=== PATIENT | female | born 1990 | race Caucasian/White ===

== ENCOUNTER 2022-12-04 12:24 | Outpatient (CLI) | payer BC, OTHER, SELFPAY ==
--- NOTE | ~2022-12-04 | MMUS_ITS ---
EXAMINATION: MM diagnostic tracey BI w dnoal, US breast BI limited HISTORY: Bilateral breast pain TECHNIQUE: Craniocaudal, mediolateral, and mediolateral oblique 3-D tomosynthesis images of the breas ts were performed and synthetic 2-D images were generated. CAD analysis was submitted and interpreted . High resolution limited bilateral breast ultrasound was performed. COMPARISON: None, baseline BREAST PARENCHYMAL COMPOSITION: The breasts are heterogeneously dense, which may obscure small masses . FINDINGS: MAMMOGRAPHIC FINDINGS: No suspicious mass, calcification, or architectural distortion are identified in either breast to sug gest malignancy. No mammographic correlate is identified for the patient's reported breast pain. ULTRASOUND: There is no evidence of focal abnormal solid or cystic mass in the vicinity of the patient's reported breast pain. IMPRESSION: 1. No specific mammographic or sonographic correlate is identified for the patient's reported breast pain. Further evaluation at this time should be based on clinical assessment. Continued follow-up phy sical examination is recommended. 2. Recommend routine screening mammography beginning at age 40. BI-RADS Category 1: Negative Reviewed, dictated and finalized at location A. IMPRESSION: 1. No specific mammographic or sonographic correlate is identified for the veronica ent's reported breast pain. Further evaluation at this time should be based on clinical assessment. Continued follow-up physical examination is recommended. 2. Recommend routine screening mammography beginning at age 40. BI-RADS Category 1: Negative
== END 2022-12-04 12:25 | disposition home or self-care (01) ==
PROVIDERS: PCP Family Medicine; Visit Provider Obstetrics & Gynecology Gynecology
DX: N64.4 Mastodynia (principal)
CPT/HCPCS: 76642; 77062; 77066; G0279

== ENCOUNTER 2024-09-25 12:28 | Outpatient (CLI) | payer OTHER, MEDICAID, SELFPAY | END 2024-09-25 12:29 | disposition home or self-care (01) | PROVIDERS: PCP Family Medicine | DX: G43.709 Chronic migraine without aura, not intractable, without status migrainosus (principal); R90.82 White matter disease, unspecified | CPT/HCPCS: 70551 ==

== ENCOUNTER 2024-10-13 09:52 | Outpatient (CLI) | payer OTHER, MEDICAID, SELFPAY ==
--- NOTE | ~2024-10-13 | XR_ITS ---
Cervical Spine: AP, lateral, open-mouth views Clinical History: Pain Findings: There is mild reversal normal cervical lordosis. No fracture identified. There is minimal g rade 1 anterolisthesis of C2 over C3. The intervertebral disc spaces are well maintained. Pre-vertebr al soft tissues are unremarkable. Impression: Minimal grade 1 anterolisthesis of C2 over C3, with mild reversal of the normal cervical lordosis. Reviewed, dictated and finalized at location . Impression: Minimal grade 1 anterolisthesis of C2 over C3, with mild reversal of the normal cervical lordosis.
--- OUTSIDE RECORDS SUMMARY | 2024-10-13 11:07 | XMS_ITS | CONTINUITY OF CARE DOCUMENT ---
Author Name jordan ortega Address Unknown Organization [facility] Address [id number] [place] [address] [address] [place] [address] Phone [phone] Care Team Providers Care Building Pressure Washer Name Role Phone ELIAN GALE MD Unavailable [phone] ELIAN GALE MD Unavailable [phone] INSURANCE PROVIDERS Payer name Policy type / Coverage type [place] red democrat [employer] insurance [employer] [facility] Other [id number]
--- OUTSIDE RECORDS SUMMARY | 2024-10-13 11:07 | XMS_ITS | Data Portability ---
Author Organization [place] [facility] [employer], Main Office Address [address] [place] [address] Assessment No assessment recorded. Plan of Treatment Reminders Order Date Submit Date Provider Last Modified By Organization Details Last Modified Time Details Appointments Follow Up 30 2024 09:30A Alberto Lacey NP Not available Not available Not available Lab rf (rheum atoid factor ), serum 2024 025 LATOYA Newberry, [address], [place], [address], 10/11/2024 17:09:29 ESR (eryth rocyte sedime ntatio n rate), blood 2024 025 LATOYA Newberry, [address], [place], [address], 10/11/2024 17:09:28 FRANK (antin uclear antibo dies) screen , serum 2024 025 LATOYA Newberry, [address], [place], [address], 10/11/2024 17:09:26 TSH + free T4, serum 2024 025 LATOYA Newberry, [address], [place], [address], 10/11/2024 17:09:27 thyroi d peroxi dase (tpo) Ab, serum 2024 025 LATOYA Newberry, [address], [place], [address], 10/11/2024 17:09:26 T3, free, serum or plasma 2024 [facility], [address], [place], [address], 10/11/2024 17:09:27 magnes ium, serum or plasma 2024 [facility], [address], [place], [address], 10/11/2024 17:09:43 cobala min and folate panel, serum 2024 [facility], [address], [place], [address], 10/11/2024 17:09:28 CK (creat ine kinase ), total, serum 2024 [place] [facility], [address], [place], [address], 10/11/2024 17:09:27 HbA1c (hemog lobin A1c), blood 2024 [place] [facility], [address], [place], [address], 10/11/2024 17:09:29 vitami n D, 25-hyd cristy, total, serum 2024 [facility], [address], [place], [address], 10/11/2024 17:09:28 lipid panel, serum 2024 LATOYAMARK Carlisle, [address], [place], [address], 10/11/2024 17:09:28 CMP, serum or plasma 2024 025 [place] [facility], [address], [place], [address], 10/11/2024 17:09:25 CBC w/ auto diff 2024 025 [place] [facility], [address], [place], [address], 10/11/2024 17:09:43 varice lla zoster virus IgG Ab, QL, IA, serum 2024 025 [place] [facility], [address], [place], [address], 10/11/2024 17:09:28 pregna ncy test, urine [address], [place], [address], 05/01/2023 17:41:39 urinal ysis, dipsti ck [address], [place], [address], 05/01/2023 17:41:14 urinal ysis, dipsti ck 2022 023 [email or web address] [facility], [address] [facility] [address], [address], 03/21/2023 10:23:31 urinal ysis, dipsti ck 2022 023 [email or web address] [facility], [address] [facility] [address], [address], 12/30/2022 14:35:12 Referral cardio logist referr al - (nikolay garcia on note) Please call harshal astudillo to floyd briggs an appoin tment. Thank you. 2024 025 [facility] Referral Fax Line, [address], [address], [place], [address], 10/12/2024 08:40:26 dermat ologis t referr al 2022 023 [email or web address] [facility], [address] [place], [address], 12/05/2022 15:06:58 audiol ogist referr al [email or web address] [facility], [address] [facility], [address] , [place], [address], 12/05/2022 15:06:58 hand surgeo n referr al 2022 023 [email or web address] Abdirashid Leslie MD, [address] [place], [address], 12/05/2022 15:06:58 Procedures None record ed. Surgeries None record ed. Imaging XR, cervic al spine, 2 or 3 view 2024 025 [facility], [address] [place] [address] [address], [address], [place], [address], 10/12/2024 08:53:45 MRI, cervic al spine, w/o contra st - Please call harshal astudillo to floyd briggs. 2024 025 [facility], [address], [address], [place], [address], 10/13/2024 11:00:48 XR, abdome n, 1 view 2022 023 [email or web address] [facility] (Imaging), [address], [place], [address], 05/09/2023 09:29:07 Medication Orders nystat in 100,00 0 unit/m L oral suspen lottie 2024 025 [facility][id number], [address] [facility] [place], [address], 10/11/2024 17:09:20 Addera ll 10 mg tablet 2024 025 [facility] #[id number], [address] [facility] [place], [address], 10/11/2024 17:09:21 famoti dine 20 mg tablet 2022 023 [facility], [address] [place] [address], [place], [address], 10/11/2024 16:05:38 Gemtes a 75 mg tablet 2022 023 [facility], [address] [place] [address], [place], [address], 10/11/2024 16:05:56 Gemtes a 75 mg tablet 2022 023 [facility], [address] [place] [address], [place], [address], 10/11/2024 16:05:56 Patient TargetsNo targets recorded. 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 Thank you. Referring Physician: Rebecca Lacey, Family Medicine, Encounter Date: 10/11/2024 Results Created Date Observation Date Name Description Value Unit Range Abnormal Flag Note LastModifiedBy Organization Detail LastModifiedTime 12/31/19 23 12/30/2022 urina lysis , dipst ick Leukocytes (reference range: negative montse/ l) Negati ve Not Available [facility] [address] [place] [address] [address], [place], [address], 12/30/2022 09:08:42 12/31/1912/30/2022 urina lysis , dipst ick Nitrite (reference rage: negative mg/dl) negati ve Not Available [facility] [address] [place] [address] Ave [facility] [address], [place], [address], 12/30/2022 09:08:42 12/31/1912/30/2022 urina lysis , dipst ick Urobilinogen (reference range: 0.2-1 mg/dl) 0.2 Not Available [facility] [address] [place] [address] Ave [facility] [address], [place], [address], 12/30/2022 09:08:42 12/31/1912/30/2022 urina lysis , dipst ick Protein (reference range: negative mg/dl) Negati ve Not Available [facility] [address] [place] [address] Ave [facility] [address], [place], [address], 12/30/2022 09:08:42 12/31/1912/30/2022 urina lysis , dipst ick pH (reference range: 5-7) 5.5 Not Available [facility] [address] [place] [address] [address], [place], [address], 12/30/2022 09:08:42 12/31/19 23 12/30/2022 urina lysis , dipst ick Blood (reference range: negative Kenan/ l) Negati ve Not Available [facility] [address], [place], [address], 12/30/2022 09:08:42 12/31/19 23 12/30/2022 urina lysis , dipst ick Specific Goodrich (reference range: 1.005-1.030) 1.030 Not Available [facility] [address], [place], [address], 12/30/2022 09:08:42 12/31/19 23 12/30/2022 urina lysis , dipst ick Ketone (reference range: negative mg/dl) Negati ve Not Available [facility] [address], [place], [address], 12/30/2022 09:08:42 12/31/19 23 12/30/2022 urina lysis , dipst ick Bilirubin (reference range: negative mg/dl) Negati ve Not Available [facility] [address], [place], [address], 12/30/2022 09:08:42 12/31/19 23 12/30/2022 urina lysis , dipst ick Glucose (reference range: negative mg/dl) Negati ve Not Available [facility] [address], [place], [address], 12/30/2022 09:08:42 12/31/19 23 12/30/2022 urina lysis , dipst ick Appearance Clear Not Available [facility] [address], [place], [address], 12/30/2022 09:08:42 12/31/19 23 12/30/2022 urina lysis , dipst ick Color Yellow Not Available [facility] [place] [address], [place], [address], 12/30/2022 09:08:42 03/21/20 23 03/21/2023 urina lysis , dipst ick Leukocytes (reference range: negative montse/ l) Negati ve Not Available [facility] [address], [place], [address], 03/21/2023 09:07:35 03/21/20 23 03/21/2023 urina lysis , dipst ick Nitrite (reference rage: negative mg/dl) negati ve Not Available [facility] [address], [place], [address], 03/21/2023 09:07:35 03/21/20 23 03/21/2023 urina lysis , dipst ick Urobilinogen (reference range: 0.2-1 mg/dl) 0.2 Not Available [facility] [address], [place], [address], 03/21/2023 09:07:35 03/21/20 23 03/21/2023 urina lysis , dipst ick Protein (reference range: negative mg/dl) Negati ve Not Available [facility] [address], [place], [address], 03/21/2023 09:07:35 03/21/20 23 03/21/2023 urina lysis , dipst ick pH (reference range: 5-7) 5.5 Not Available [facility] [address], [place], [address], 03/21/2023 09:07:35 03/21/20 23 03/21/2023 urina lysis , dipst ick Blood (reference range: negative Kenan/ l) Negati ve Not Available [facility] [address], [place], [address], 03/21/2023 09:07:35 03/21/20 23 03/21/2023 urina lysis , dipst ick Specific Goodrich (reference range: 1.005-1.030) 1.030 Not Available [facility] [address], [place], [address], 03/21/2023 09:07:35 03/21/20 23 03/21/2023 urina lysis , dipst ick Ketone (reference range: negative mg/dl) Negati ve Not Available [facility] [address], [place], [address], 03/21/2023 09:07:35 03/21/20 23 03/21/2023 urina lysis , dipst ick Bilirubin (reference range: negative mg/dl) Negati ve Not Available [facility] [address], [place], [address], 03/21/2023 09:07:35 03/21/20 23 03/21/2023 urina lysis , dipst ick Glucose (reference range: negative mg/dl) Negati ve Not Available [facility] [address], [place], [address], 03/21/2023 09:07:35 03/21/20 23 03/21/2023 urina lysis , dipst ick Appearance Clear Not Available [facility] [address], [place], [address], 03/21/2023 09:07:35 03/21/2003/21/2023 urina lysis , dipst ick Color Yellow Not Available [facility] [place] [address], [place], [address], 03/21/2023 09:07:35 05/05/2005/05/2023 urina lysis , dipst ick Leukocytes (reference range: negative montse/ l) Negati ve Not Available [address], [place], [address], 05/01/2023 17:29:48 05/05/2005/05/2023 urina lysis , dipst ick Nitrite (reference rage: negative mg/dl) negati ve Not Available [address], [place], [address], 05/01/2023 17:29:48 05/05/20 23 05/05/2023 urina lysis , dipst ick Urobilinogen (reference range: 0.2-1 mg/dl) 0.2 Not Available [address], [place], [address], 05/01/2023 17:29:48 05/05/20 23 05/05/2023 urina lysis , dipst ick Protein (reference range: negative mg/dl) Negati ve Not Available [address], [place], [address], 05/01/2023 17:29:48 05/05/20 23 05/05/2023 urina lysis , dipst ick pH (reference range: 5-7) 6.5 Not Available [address], [place], [address], 05/01/2023 17:29:48 05/05/2005/05/2023 urina lysis , dipst ick Blood (reference range: negative Kenan/ l) Non-He molyze d: Trace Not Available [address], [place], [address], 05/01/2023 17:29:48 05/05/2005/05/2023 urina lysis , dipst ick Specific Goodrich (reference range: 1.005-1.030) 1.010 Not Available [address], [place], [address], 05/01/2023 17:29:48 05/05/2005/05/2023 urina lysis , dipst ick Ketone (reference range: negative mg/dl) Negati ve Not Available [address], [place], [address], 05/01/2023 17:29:48 05/05/2005/05/2023 urina lysis , dipst ick Bilirubin (reference range: negative mg/dl) Negati ve Not Available [address], [place], [address], 05/01/2023 17:29:48 05/05/2005/05/2023 urina lysis , dipst ick Glucose (reference range: negative mg/dl) Negati ve Not Available [address], [place], [address], 05/01/2023 17:29:48 05/05/2005/05/2023 urina lysis , dipst ick Appearance Slight ly Cloudy Not Available [address], [place], [address], 05/01/2023 17:29:48 05/05/2005/05/2023 urina lysis , dipst ick Color Yellow Not Available [address], [place], [address], 05/01/2023 17:29:48 05/05/2005/05/2023 pregn farhad test, urine HCG negati ve Not Available [address], [place], [address], 05/01/2023 17:29:46 12/05/19 23 12/04/2022 MAMMO , diagn ostic , digit al, bilat eral No observ ation record ed. [facility] [address], [place], [address], 12/09/2022 11:11:54 05/01/2005/01/2023 XR, abdom en, 1 view [facility] [address] [place] [address] Patien t Name: XIN ROLLE Access ion #: [id number] Sex: F : 1989 7 Dictat ed By: Narendra Knight Attend ing Physic shala: RODNEY BONILLA Orderi ng Physic shala: RODNEY BONILLA Exam Date: 2022 17:09 PM Exam Name: XR ABDOME N SINGLE AP/KUB Admitt ing Diagno sis(es ): EXAMIN ATION: KUB-2 views CLINIC AL HISTOR Y: Abdomi nal COMPAR NATALY: None FINDIN GS: No discre tely dilate d small bowel loops or air-fl uid levels apprec iated. Air and stool noted within the colon. No defini te eviden ce of pneumo perito neum. Multip le pelvic phlebo liths are noted. IMPRES LOTTIE: Overal l nonspe cific, nonobs tructi ve bowel gas patter n. If there is persis tent clinic al concer n, additi onal imagin g such as ultras ound and/or CT may be consid ered to magnus perales. Electr onical ly Signed by: Narendra Knight at 2022 18:12: 08 PM Page 1 [email or web address] [facility] (Imaging) [address] [place], [address], 05/09/2023 12:06:40 10/12/19 25 09/25/2024 imagi ng/di agnos tic resul t No observ ation record ed. [facility] [address], [place], [address], 10/11/2024 16:43:05 Result Notes None recorded. Problems Name Problem SNOMED Code Status Onset Date Resolution Date Notes Provider Name and Address Organization Details Recorded Time Irritable bowel syndrome 34538581 Active Not Available [facility] 3 15:19:27 Acne 00258604 Active Not Available [facility] 3 15:19:27 Suprapubic pain 257507349 Active Not Available [facility] 3 15:19:27 Asthma 757408378 Active 2016 Not Available [facility] 3 15:19:27 Abdominal pain 63593619 Active Not Available [facility] 3 15:19:27 Vaginitis 40023477 Active Not Available [facility] 3 15:19:27 Menometrorrha david 062245939 Active Not Available [facility] 3 15:19:27 Restless legs 23200395 Active 2019 Not Available [facility] 3 15:19:27 Depressive disorder 33957649 Active Not Available [facility] 3 15:19:27 Sinusitis 18921928 Active Not Available [facility] 3 15:19:27 Bacterial vaginosis 856124945 Active Not Available [facility] 3 15:19:27 Anxiety 03655150 Active Not Available [facility] 3 15:19:27 Morning sickness 27736759 Active Not Available [facility] 3 15:19:28 Vulvitis 09715855 Active Not Available [facility] 3 15:19:28 Acute cystitis 17674621 Active Not Available [facility] 3 15:19:28 Tingling pain 167086972 Active 2019 Not Available [facility] 3 15:19:28 Loss of hair 563970638 Active 2022 GIO [address]ks [address], [place], [address] , [place] [facility] 3 08:12:59 Paresthesia of upper limb 70036757 Active 2022 GIO Burks [address], [address], [place], [address] , [employer] [place] [facility] 3 08:18:51 Hearing loss 36509135 Active 2022 GIO Burks [address], [address], [place], [address] , [place] [facility] 3 08:22:07 Strain of neck muscle 991292397 Active 2022 GIO Burks [address], [place], [address] , [employer] [place] [facility] 3 08:24:19 Increased frequency of urination 751341688 Active 2022 Allen Leach NP [address], [address], [place], [address] , [place] [facility] 3 09:23:26 Nocturia 331644521 Active 2022 Allen Leach NP [address], [place], [address] , [place] [facility] 3 14:47:32 Urgent desire to urinate 34481493 Active 2022 Allen Leach NP [address], [place], [address] , [place] [facility] 3 14:50:22 Stomach cramps 97455889 Active 2022 MERRILL Bryan [address], [place], [address] , [employer] 3 17:29:43 Syncope 320605325 Active 2024 KARENA Devine [address], [place], [address] , [employer] 5 16:17:54 Attention deficit hyperactivity disorder 312494372 Active 2024 KARENA Devine [address], [place], [address] , [employer] 5 16:34:10 Candidiasis of mouth 14580190 Active 2024 KARENA Devine [address], [place], [address] , [employer] 5 17:01:24 Stiff neck 355553573 Active 2024 KARENA Devine [address], [place], [address] , [employer] 5 17:02:08 Neck pain 81032467 Active 2024 KARENA Devine [address], [place], [address] , [employer] 5 17:02:19 Involuntary movement 140373993 Active 2024 KARENA Devine [address], [place], [address] , [employer] 5 17:04:38 Problem Notes None recorded. Procedures Surgical History Date Name Laterality Status Provider Name and Address Organization Details Recorded Time Foot Surgery completed Not Available [facility] 09/25/2022 15:15:20 section completed Not Available [facility] 09/25/2022 15:15:20 Imaging Results Imaging Date Name Status LastModified by [facility] Details LastModified Time 12/04/2022 MAMMO, diagnostic, digital, bilateral completed [email or web address] [facility] [address], [place], [address], 12/09/2022 11:11:54 05/01/2023 XR, abdomen, 1 view completed [email or web address] [facility] ([facility]) [address] [place], [address], 05/09/2023 12:06:40 09/25/2024 imaging/diagno stic result active [facility] [address], [place], [address], 10/11/2024 16:43:05 Procedure Notes None recorded. Medical Equipment None Reported. Allergies Allergen ID Allergen Name Allergen Category Reaction Reaction Severity Criticality Documentation Date Start Date Code Code System Note Provider Name and Address Organization Details Recorded Time 25080 morphine medicatio n Not available Not available Not available 09/25/2022 7052 RxNorm Not Available [facility] 3 15:22:20 61840 Effexor medicatio n other severe Not available 09/25/20222019 62927 2 RxNorm throa t pawan garcia, pupil s dilat ed, daly garcia, muscyaneth e stiff ness Not Available [facility] 3 15:22:21 Medications Name Sig Start Date Stop Date Status Note LastModified by Organization Details LastModified Time vitamin d3 2000unit cap TAKE 1 CAPSULE BY MOUTH ONCE DAILY 12/30 completed Not Available Not Available Not Available quetiapine 25 mg tablet 04/03 completed Not Available Not Available Not Available amoxicillin 500 mg capsule TK ONE C PO TID active Not Available Not Available No t Available Mirena 21 mcg/24 hr (up to 8 years) 52 mg intrauterin e device Take by intrauter ine route. 04/09 completed Not Available Not Available Not Available nystatin 100,000 unit/mL oral suspension swish and spit 5mls by mouth 4 times daily for 5 days 2024 active Not Available Not Available Not Avai lable venlafaxine ER 37.5 mg capsule,ext ended release 24 hr TK 1 C PO QD FOR 1 WEEK THEN TK 2 CS PO QD active Not Available Not Available No t Available venlafaxine ER 75 mg capsule,ext ended release 24 hr active Not Available Not Available Not Available doxycycline hyclate 100 mg capsule TAKE 1 CAPSULE BY MOUTH TWICE A DAY 10/11 completed Not Available Not Available Not Available azithromyci n 250 mg tablet TAKE 2 TABLETS (500 MG) BY ORAL ROUTE ONCE DAILY FOR 1 DAY THEN 1 TABLET (250 MG) BY ORAL ROUTE ONCE DAILY FOR 4 DAYS 04/03 completed Not Available Not Available Not Available fluconazole 150 mg tablet TAKE 1 TABLET BY MOUTH ONCE FOR 1 DOSE 04/09 completed Not Available Not Available Not Available citalopram 10 mg tablet Take 1 tablet every day by oral route at bedtime. active Not Available Not Available No t Available clarithromy lillie 500 mg tablet active Not Available Not Available Not Available hydrocodone 5 mg-acetamin ophen 325 mg tablet TAKE 1 TABLET PO Q 6 HOURS PRF PAIN active Not Available Not Available No t Available fluconazole 200 mg tablet TAKE 1 TABLET BY MOUTH AT END OF ANTIBIOTI CS OR WHEN SYMPTOMS START AND 1 TABLET 72 HOURS LATER 10/11 completed Not Available Not Available Not Available metronidazo le 0.75 % (37.5 mg/5 gram) vaginal gel INSERT 1 APPLICATO RFUL VAGINALLY AT BEDTIME FOR 10 NIGHTS 05/23 completed Not Available Not Available Not Available prednisone 20 mg tablet 3 po qday x 3 days then 2 po qday x 3 days then 1 po qday x 3 days then 1/2 tab po qday x 3 days then stop 05/13 completed Not Available Not Available Not Available sertraline 100 mg tablet Take 1 tablet every day by oral route. 10/01 completed Not Available Not Available Not Available terconazole 0.8 % vaginal cream INSERT 1 APPLICATO RFUL VAGINALLY ONCE DAILY AT BEDTIME FOR 3 DAYS 05/23 completed Not Available Not Available Not Available moxifloxaci n 400 mg tablet TAKE 1 TABLET BY MOUTH EVERY DAY UNTIL FINISHED 10/11 completed Not Available Not Available Not Available sumatriptan 50 mg tablet take one a day, may repeat in 2 hrs if not better, not to take more than 2 tabs in 24 hrs 05/23 completed Not Available Not Available Not Available penicillin V potassium 500 mg tablet TK 1 T PO BID active Not Available Not Available No t Available triamcinolo ne acetonide 0.5 % topical ointment APPLY TO AFFECTED AREA TWICE A DAY 10/11 completed Not Available Not Available Not Available metronidazo le 500 mg tablet TAKE 1 TABLET BY MOUTH TWICE DAILY (DO NOT CONSUME ALCOHOL WHILE TAKING THIS MEDICATIO N) 12/30 completed Not Available Not Available Not Available valacyclovi r 500 mg tablet TAKE 1 TABLET BY MOUTH DAILY active Not Available Not Available No t Available ciprofloxac in 500 mg tablet TK 1 T PO BID active Not Available Not Available No t Available clindamycin 1 %-benzoyl peroxide 5 % topical gel APPLY A PEA SIZED AMOUNT TO ACNE PRONE AREAS IN THE MORNING. MOISTURIZ E AFTER. AVOID EYELIDS. 10/11 completed Not Available Not Available Not Available sulfamethox azole 800 mg-trimetho prim 160 mg tablet Take 1 tablet every 12 hours by oral route for 3 days. 09/14 completed Not Available Not Available Not Available tramadol 50 mg tablet TK 1 T PO Q 4 H PRN P 04/03 completed Not Available Not Available Not Available adapalene 0.1 % topical cream APPLY A PEA SIZED AMOUNT TO EACH CHEEK AT BEDTIME 05/23 completed Not Available Not Available Not Available terconazole 80 mg vaginal suppository 04/03 completed Not Available Not Available Not Available nystatin-tr iamcinolone 100,000 unit/gram-0 .1 % topical ointment Apply 1 applicati on twice a day by topical route for 14 days. active Not Available Not Available No t Available nortriptyli ne 25 mg capsule TAKE 1 CAPSULE BY MOUTH AT BEDTIME 10/11 completed Not Available Not Available Not Available amoxicillin 875 mg tablet TAKE 1 TABLET BY MOUTH TWICE A DAY FOR 10 DAYS 04/09 completed Not Available Not Available Not Available famotidine 20 mg tablet TAKE 1 TABLET BY MOUTH TWICE DAILY 10/11 completed Not Available Not Available Not Available prednisolon e acetate 1 % eye drops,suspe nsion INSTILL 1 DROP THREE TIMES A DAY IN THE LEFT EYE FOR INFLAMMAT ION 04/09 completed Not Available Not Available Not Available benzonatate 100 mg capsule TAKE ONE CAPSULE BY MOUTH THREE TIMES DAILY NEEDED 04/09 completed Not Available Not Available Not Available nortriptyli ne 10 mg capsule TAKE 1 CAPSULE BY MOUTH AT BEDTIME 12/30 completed Not Available Not Available Not Available oseltamivir 75 mg capsule TAKE 1 CAPSULE BY MOUTH TWICE DAILY 04/09 completed Not Available Not Available Not Available neomycin-po lymyxin-dex ameth 3.5 mg/mL-10,00 0 unit/mL-0.1 % eye drops INSTILL 1 DROP 4 TIMES DAILY INTO LEFT EYE FOR 7 DAYS FOR INFECTION 04/09 completed Not Available Not Available Not Available nitrofurant oin macrocrysta l 100 mg capsule TAKE 1 CAPSULE BY MOUTH TWICE DAILY FOR 7 DAYS 04/09 completed Not Available Not Available Not Available clotrimazol e-betametha sone 1 %-0.05 % topical cream APPLY TO AFFECTED AREA TWICE A DAY UNTIL SYMPTOMS ARE NO LONGER PRESENT 10/11 completed Not Available Not Available Not Available fluorometho lone 0.1 % eye drops,suspe nsion INSTILL 1 DROP INTO EACH EYE 4 TIMES DAILY DIRECTED 08/23 completed Not Available Not Available Not Available indomethaci n 50 mg capsule TAKE 1 CAPSULE BY MOUTH EVERY 12 HOURS NEEDED FOR HEADACHE PAIN 10/11 completed Not Available Not Available Not Available fluoxetine 10 mg capsule 04/03 completed Not Available Not Available Not Available hydroxyzine HCl 25 mg tablet 04/03 completed Not Available Not Available Not Available gabapentin 100 mg capsule 10/11 completed Not Available Not Available Not Available levofloxaci n 500 mg tablet TK 1 T PO ONCE D active Not Available Not Available No t Available levofloxaci n 750 mg tablet TAKE 1 TABLET BY MOUTH EVERY DAY FOR 7 DAYS 10/11 completed Not Available Not Available Not Available methylpredn isolone 4 mg tablets in a dose pack TAKE 6 TABLETS ON DAY 1 DIRECTED ON PACKAGE AND DECREASE BY 1 TAB EACH DAY FOR A TOTAL OF 6 DAYS 10/11 completed Not Available Not Available Not Available albuterol sulfate HFA 90 mcg/actuati on aerosol inhaler INHALE 2 (TWO) PUFFS BY MOUTH EVERY 6 HOURS NEEDED FOR WHEEZING OR COUGH 09/23 completed Not Available Not Available Not Available Vitamin D2 1,250 mcg (50,000 unit) capsule TAKE 1 CAPSULE BY MOUTH ONCE A WEEK 05/23 completed Not Available Not Available Not Available Percocet 5 mg-325 mg tablet Take 1 tablet every 6 hours by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 developing dry mouth and if she would begin to talk to fast her mouth would start foaming so she discontinued the medication. She states that she is voiding about every hour during the day and waking up 3-4x a night. Her Zipper Lining Folder recommended that she discuss Gemtesa today. UA- negative for blood or infection 3Patient returns to the office for follow-up. She started Gemtesa and reports significant improvement in frequency and urgency. She is rarely waking up at night to urinate anymore. She does report that she is still having occasional episodes of dry mouth, but not nearly as severe as prior meds. Reports some mild regression in symptoms this week but attributes it to eating more pickles than usual. UA- negative for blood or infection Allen Leach, VP CLINICAL [address], [facility] [address], [place], [address], [employer] [employer] 03/21/2023 10:24:22 05/01/2023 text/html 1. Pt in office for problem visit with c/o having cramps for the past few months. Pt states that she notices the cramps just before her menstrual cycle starts. Pt states that she started having the cramps this time a couple of weeks ago before her most recent menses started. States that period started last friday and usually only lasts about 4-5 days, but she is still spotting this time. Wonders if pain is from gabapentin causing cramping/constipat ion b/c that's when she notices the symptoms the most. Also says she sometimes smells bloody infection when she urinates. Reports no intercourse for the past 3-4 weeks. MERRILL Bryan [address], [place], [address], [employer] 05/01/2023 20:20:31 10/11/2024 text/html Patient is a 34 year old female that presents to the office for annual wellness. Patient reports having a recent infection that was treated by her fitting room operator. Patient was on Doxycycline followed by Moxifloxacin. Patient reports since finishing the Moxifloxacin on 10/07 she has had diffuse bone pain. Patient reports she is currently working with her neurologist on involuntary head ticks, to the left. Patient had an MRI completed on 09/25/24 and an EEG on 10/07/24. Patient also reports right arm spasms. Patient received the EEG results through her mychart but has not followed up with the neurologist yet. Patient follows up with Neurology at least every 3 months due to chronic migraines.Patient reports about 2 hours after her EEG she passed out when she was getting out of her care. Patient reports a full syncopal episode, hitting her head on the concrete. Patient reports she has had issues with syncope in the past, would like to follow up with chemist inorganic. Patient reports a rash to the right side of her neck for about one year. Patient reports sometimes it itches, never painful. Patient reports the rash will come and go without any contributing factor. Patient reports the rash is always in the same spot. Patient reports issues with oral thrush. Patient has not noticed a pattern as to when it flares but states nothing helps it improve. Patient is also concerned with constantly being sick . Patient requesting to have autoimmune labs completed due to family history and her always being sick. Patient reports her arms and legs have felt numb and tingly for a while. Denies any falls. Patient reports this started shortly after worsening neck stiffness. Patient has chronic neck and back issues. Patient is concerned that she has undiagnosed/untrea beny ADHD or ADD due to her being a scattered mess all the time. Patient reports she is never focused. Patient has never been on medication for ADD/ADHD before, was always told it was depression. Patient reports trying numerous medications for depression, had some side effectors to Effexor and decided she will never take anything for depression. labs- ordered ([facility])WWE- UTD (November 2023)- sees gynecologyMammogra m-age [id number]- KARENA Devine [address] [facility], [facility] [address], [place], [address], [facility] [employer] 10/12/2024 22:48:14 OBGyn Episode No OBEpisode recorded.
--- OUTSIDE RECORDS SUMMARY | 2024-10-13 11:07 | XMS_ITS | Clinical Summary ---
Author Organization [facility] Address [address] [place] [address] Care Team Providers Care Gauge And Instrument Inspector Name Role Phone Ana Luisa Spicer PA-C Primary Care Provider [phone] Source Comments [facility],non-[facility] Affiliates and Associated Physician Practices is amultiple site organization consisting of ambulatory clinics and hospital sitesin [place] and [place]. This disclosure is being madepursuant to the Care Everywhere program and may not contain all information available regarding this patient. Last updated 18.[facility] Allergies Active Allergy Reactions Criticality Noted Date Comments Venlafaxine Other 01/03/2023 SIDE EFFECT Morphine Other 01/03/2023 SIDE ADVERSE REACTION Medications * Be aware that medications may not be up to date on this document. Alwaysverify current medications with the patient. Medication Sig Dispensed Refills Start Date End Date Status Vitamin D, Cholecalciferol, 50 MCG (1999) CAPS Take 1 capsule by mouth once daily 07/30/2022 Active Vibegron (Gemtesa) 75 MG TABS Take 1 (one) tablet by mouth once daily Active ascorbic acid (VITAMIN C) 500 MG tablet Take 1 (one) tablet by mouth once daily 05/13/2022 Active valACYclovir (Valtrex) 500 MG tablet Take 1 (one) tablet by mouth once daily 08/31/2024 Active gabapentin (Neurontin) 100 MG capsule Take 1 (one) capsule by mouth 2 times daily 180 capsule 1 09/30/2024 Active indomethacin (Indocin) 50 MG capsule Take 1 (one) capsule by mouth every 12 hours as needed for Pain (headache) 20 capsule 3 09/30/2024 Active indomethacin (Indocin) 50 MG capsule Take 1 (one) capsule by mouth every 12 hours as needed for Pain (headache) 20 capsule 3 05/18/2024 09/30/2024 Discontinued (Reorder) Hospital, Clinic, or Other Facility Administered Medication Ordered Dose Route Frequency Start Date End Date Status onabotulinumtoxin A (Botox) injection 155 UnitsIndications:Chronic migraine without aura without status migrainosus, not intractable 155 Units IM ONCE 09/30/2024 09/30/2024 Ended Active Problems Problem Noted Date Diagnosed Date Shoulder instability, 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 Tear of left glenoid labrum 04/16/2019 Abnormality in --R/O Amniotic Ban d Syndrome 01/25/2010 Overview (01/25/2010): [facility] PAT[facility] Diagnosis: Planned delivery location: Planned [place] at delivery: Planned mode of delivery: Care Provider: Consultants involved: Planned care after delivery: care needed at : PLEASE CALL GROUP HOME IF TRIAGED OR ADMITTED: Shasta Moore or April Colin Encounters Date Type Department Care Team Description 10/07/2024 8:58 AM CDT - 10/07/2024 11:59 PM CDT Hospital Encounter [facility] - Electrophysiology [address] [place] [address] Dayton Segovia MD Discharge Disposition: Home or Self Care 09/30/2024 11:00 AM CARBIDE DIE MAKER Procedure visit [address] [place] [phone] Dayton Segovia MD Chronic migraine without aura without status migrainosus, not intractable ; Cervicalgia; Abnormal brain MRI; Myoclonus; Cervicogenic headache; Whiplash injury to neck, initial encounter; Chronic tension-type headache, not intractable 09/29/2024 Orders Only [address] [phone] Dayton Segovia MD Chronic migraine without aura without status migrainosus, not intractable 09/08/2024 Orders Only [facility] [address] [facility] [address] [place] [address] Dayton Segovia MD Chronic migraine without aura without status migrainosus, not intractable 09/07/2024 Telephone [facility] [address] [place] [address] [place] [phone] Dayton Segovia MD Concerns 07/30/[address] [place] [phone] Dayton Segovia MD Insurance Issue/question from Last 3 Months Social History Tobacco Use Types Packs/Day Years Used Date Smoking Tobacco: Never Smokeless Tobacco: Never Tobacco Cessation:Counseling Given: Not Answered Alcohol Use Standard Drinks/Week Comments Yes 0 (1 standard drink = 0.6 oz pur e alcohol) Monthly (2-3 Alc Seltzers) AUDIT-C Answer Date Recorded Q1: How often do you have a drink containing alc ohol? 2-3 times a week 10/11/2022 Q2: How many drinks containi ng alcohol do you have on a typical day when you are drinking? 3 or 4 10/11/2022 Q3: How often do you have si x or more drinks on one occasion? Monthly 10/11/2022 PHQ-2 Answer Date Recorded PHQ2 TOTAL SCORE 0 10/11/2022 Sex and Gender Information Value Date Recorded Sex Assigned at Not on file Gender Identity Not on file Sexual Orientation Not on file Last Filed Vital Signs Vital Sign Reading Time Taken Comments Blood Pressure 114/72 06/09/2024 3:01 PM CARBIDE DIE MAKER Pulse 73 06/09/2024 3:01 PM CARBIDE DIE MAKER Temperature 36.5 C (97.7 F) 06/09/2024 10:10 AM CARBIDE DIE MAKER Respiratory Rate 15 06/09/2024 3:01 PM CARBIDE DIE MAKER Oxygen Saturation 97% 06/09/2024 3:01 PM CARBIDE DIE MAKER Inhaled Oxygen Concentration - - Weight 58.1 kg (128 lb) 09/30/2024 11:16 AM CARBIDE DIE MAKER Height 157.5 cm (5' 2 ) 09/30/2024 11:16 AM CARBIDE DIE MAKER Body Mass Index 23.41 09/30/2024 11:16 AM CARBIDE DIE MAKER Plan of Treatment Upcoming Encounters Date Type Department Care Team (Late st Contact Info) Description 12/24/2024 8:40 AM CDT Procedure visit [facility] Health Neurosciences [address] [facility] [address] [place] [phone] [place] [address] [place] [address] 04/04/2025 9:00 AM CDT Appointment [facility] Imaging Services - MRI [address] [place] [address] [place] [address] [place] [address] Health Maintenance Due Date Last Done Comments PAP SMEAR 1991 HIV SCREENING 2006 HEPATITIS C SCREENING 02/02/2009 DTAP/TDAP/TD VACCINES (1 - Tdap) 2010 HEPATITIS B VACCINE (1 of 3 - 19+ 3-dose series) 2010 COVID-19 VACCINE ( - 2023-2 5 season) 2024 01/30/2021, 01/09/2021 INFLUENZA VACCINE (#1) 2024 DEPRESSION SCREENING 07/28/2024 10/11/2022 ZOSTER VACCINE (1 of 2) 2041 HIB VACCINE Aged Out No longer eligi ble based on patient's age to complete this topic HPV VACCINE Aged Out No longer eligi ble based on patient's age to complete this topic MENINGOCOCCAL (Group B) VACCINE SHARED DECISION-MAKING Aged Out No longer eligible based on patient's age to complete this topic MENINGOCOCCAL GROUPS A/C/Y/W VACCINE Aged Out No longer eligible b ased on patient's age to complete this topic PNEUMOCOCCAL VACCINE Aged Out No long er eligible based on patient's age to complete this topic Procedures Procedure Name Priority Date/Time Associated Diagnosis Comments EEG Routine 10/07/2024 6:46 PM CDT Chronic migraine without aura without status migrainosus, not intractable MRI BRAIN WO CONTRAST Routine 09/25/2024 Chronic migraine without aura without status migrainosus, not intractable from Last 3 Months Results * EEG (10/07/2024 6:46 PM CDT) Narrative CINDY MARIE - 10/07/2024 6:46 PM CDT Dayton Segovia MD 10/07/2024 6:48 PM [facility] - ELECTROPHYSIOLOGY [address] [facility] [address] Electroencephalogram Janny Rolle 10/07/2024 Indication: Janny Rolle is a 34 year old female who presents with jerking movements. Current Outpatient Medications Medication ascorbic acid (VITAMIN C) 500 MG tablet gabapentin (Neurontin) 100 MG capsule indomethacin (Indocin) 50 MG capsule valACYclovir (Valtrex) 500 MG tablet Vibegron (Gemtesa) 75 MG TABS Vitamin D, Cholecalciferol, 50 MCG (1999 [place]) CAPS No current facility-administered medications for this encounter. Procedure: Pt is awake and drowsy during the recording. A 16 channel EEG was performed in the International 10-20 system. One lead of EKG records a regular rate of 98 bpm. The technical quality is good.The background rhythm is alpha in the range of 8-9 hertz, with faster beta activity present anteriorly. Voltages range from 20-75 microvolts. Hyperventilation was not performed and photic stimulation produced no abnormal responses. There are no epileptiform discharges identified. Sleep was attempted. Impression: This is a normal electroencephalogram. Please note that a normal EEG cannot exclude a seizure disorder. If strongly suspected, further study may be performed with a sleep-deprived or extended EEG. Dayton Segovia MD Dayton Segovia MD NEUROLOGY ORDERABLES [facility] MEDLIANET * MRI Brain Wo Contrast (09/25/2024) Anatomical Region Laterality Modality Head Magnetic Resonan ce Dayton Segovia MD MR ORDERABLES from Last 3 Months Care Teams Gauge And Instrument Inspector Relationship Specialty Start Date End Date Ana Luisa Spicer PA-C [address] [place] [address] [place] [phone] PCP - General Physician Chefs 06/08/24
--- OUTSIDE RECORDS SUMMARY | 2024-10-13 11:07 | XMS_ITS | Clinical Summary ---
Author Organization [facility] Address [address] [place] [address] Care Team Providers Care Sports Physician Name Role Phone Anjana Conner MD Primary Care Provider Social History Tobacco Use Types Packs/Day Years Used Date Smoking Tobacco: Never Assessed Comments Unknown Sex and Gender Information Value Date Recorded Sex Assigned at Not on file Legal Sex Female 8:33 PM CDT Gender Identity Not on file Sexual Orientation Not on file Plan of Treatment Health Maintenance Due Date Last Done Comments Cervical Cancer Screening Pa p Smear (Age 30 to 64) Every 3 Years 1991 Annual Physical 1994 PHQ-2 (Physician [employer]) 2003 Hepatitis C 2009 DTaP, Tdap and Td Vaccines ( 1 - Tdap) 2010 Hepatitis B Vaccines (1 of 3 - 19+ 3-dose series) 2010 Cervical Cancer Screening Pa p with HPV Testing (Age 30 to 64) Every 5 Years 2021 Cervical Cancer Screening with HPV 2021 COVID-19 Vaccine (2023-2 5 season) 2024 Influenza Adult (#1) 2024 PHQ-2 (Physician [employer]) 07/28/2024 HPV Vaccines Aged Out No longer eligi ble based on patient's age to complete this topic Meningococcal B Vaccine Aged Out No l onger eligible based on patient's age to complete this topic Meningococcal Vaccine Aged Out No teodoro merlin eligible based on patient's age to complete this topic Pneumococcal Vaccine: Pediat rics (0 to 5 Years) and At-Risk Patients (6 to 64 Years) Aged Out No longer eligible b ased on patient's age to complete this topic RSV Immunizations Under 20 Months Aged Out No longer eligible based on patient's age to complete this topic Insurance [place] [address] [place] [address] Care Teams Sports Physician Relationship Specialty Start Date End Date Anjana Conner MD [address] [place] [address] [place] [address] PCP - General FAMILY PRACTICE 09/19/20
== END 2024-10-13 09:53 | disposition home or self-care (01) ==
PROVIDERS: PCP Nurse Practitioner Family; Visit Provider Nurse Practitioner Family
DX: M54.2 Cervicalgia (principal)
CPT/HCPCS: 72040

== ENCOUNTER 2024-10-14 09:01 | Outpatient (CLI) | payer OTHER, MEDICAID, SELFPAY ==
--- NOTE | ~2024-10-14 | XR_ITS ---
Lumbosacral Spine: AP and lateral views Clinical History: Pain Findings: The normal lordotic curve is maintained. The vertebral bodies and posterior elements are i ntact. The intervertebral disc spaces are preserved. The sacroiliac joints are normally outlined. Impression: No significant abnormality. Reviewed, dictated and finalized at [facility]. Impression: No significant abnormality.
--- NOTE | ~2024-10-14 | XR_ITS ---
Thoracic spine: Clinical Indication: Back pain AP and lateral views were performed. No fracture is seen. There is normal alignment of the vertebrae. The intervertebral disc spaces appe ar normal. Paravertebral soft tissues appear normal. Impression: No significant abnormalities noted. Reviewed, dictated and finalized at [facility]. Impression: No significant abnormalities noted.
--- OUTSIDE RECORDS SUMMARY | 2024-10-14 09:22 | XMS_ITS | Clinical Summary ---
Author Organization [facility] Address [address] [place] [id number] Care Team Providers Care Freight Checker Name Role Phone Anjana Conner MD Primary [...] Years 1991 Annual Physical 1994 PHQ-2 (Physician [employer]) 2003 Hepatitis C 2009 DTaP, Tdap and Td Vaccines ( 1 - Tdap) 2010 Hepatitis B Vaccines (1 of 3 - 19+ 3-dose series) 2010 Cervical Cancer Screening Pa p with HPV Testing (Age 30 to 64) Every 5 Years 2021 Cervical Cancer Screening with HPV 2021 COVID-19 Vaccine (2023-2 5 season) 2024 Influenza Adult (#1) 2024 PHQ-2 (Physician [employer]) 07/28/2024 HPV Vaccines Aged Out No longer [...] age to complete this topic Insurance [place] [address] [address] [place] [address] Care Teams Freight Checker Relationship Specialty Start Date End Date Anjana Conner MD [address] [place] [address] [place] [address] PCP - General FAMILY PRACTICE 09/19/20
--- OUTSIDE RECORDS SUMMARY | 2024-10-14 09:22 | XMS_ITS | Encounter Summary ---
Author Organization [facility] Address [address] [place] [address] Care Team Providers Care Inspector Process Name Role Phone Ana Luisa Spicer PA-C Primary Care Provider [phone] Reason for Visit * Reason Onset Date Comments Follow-up 10/13/2024 Encounter Details Date Type Department Care Team (Late st Contact Info) Description 10/13/[address] [facility] [employer] Neurosciences [id number] [address] [place] [address] [address] Follow-up Social History Tobacco Use Types Packs/Day Years Used Date Smoking Tobacco: Never Smokeless Tobacco: Never Alcohol Use Standard Drinks/Week Comments Yes 0 [...] on file Sexual Orientation Not on file documented as of this encounter Miscellaneous Notes * Telephone Encounter - Gianfranco Scott MA - 10/13/2024 4:12 PM CDT Patient sent a [employer] message. Please review and advise below. Hi Dr. Segovia! My chart has the EEG results which did seem normal, but also stated ???Please note that a normal EEG cannot exclude a seizure disorder. If strongly suspected, further study may be performed with a sleep-deprived or extended EEG.?? I was finally able to get in with a new PCP yesterday, before even mentioning the EEG, when I mentioned what???s been going on her first words were she is wondering if I was having seizure activity. She would like to do the extended EEG and wanted me to discuss this with you to see if you???d like to order that or not, since you???re my neuro. Also, I did faint on 10/07 and hit the back of my head on the concrete and I???ve been having a lot of pain where I hit my head and I???ve had headaches that vary from mild to moderate on the right side that seem pretty constant currently. Is this something we should just watch for a week or so to see if symptoms get better? Thank you!! documented in this encounter Plan of Treatment Upcoming Encounters Date Type Department Care Team (Late st Contact Info) Description 12/24/2024 8:40 AM CDT Procedure visit [facility] Health Neurosciences [address] [facility] [address] [place] [address] [place] [address] [place] [address] 04/04/2025 9:00 AM CDT Appointment [facility] Imaging Services - MRI [address] [facility] [address] [place] [address] [place] [address] [place] [address] documented as of this encounter Visit Diagnoses Not on filedocumented in this encounter Care Teams Inspector Process Relationship Specialty Start Date End Date Ana Luisa Spicer PA-C [address] [place] [address] [place] [address] PCP - General Physician Farmer [employer] 06/08/24 documented as of this encounter
--- OUTSIDE RECORDS SUMMARY | 2024-10-14 09:22 | XMS_ITS | CONTINUITY OF CARE DOCUMENT ---
Author Name jordan ortega Address Unknown Organization [facility] Address [address] [place] [address] [address] [place] [address] Phone [phone] Care Team Providers Care Business And Financial Counsel Name Role Phone ELIAN GALE MD Unavailable ELIAN GALE MD Unavailable [phone] INSURANCE PROVIDERS Payer name Policy type / Coverage type [place] red republican ID [employer] insurance company [employer] [facility] Other [id number]
--- OUTSIDE RECORDS SUMMARY | 2024-10-14 09:22 | XMS_ITS | Clinical Summary ---
Author Organization [facility] Address [address] [facility] [place] [address] Care Team Providers Care News Director Name Role Phone Ana Luisa Spicer PA-C Primary Care Provider [phone] Source Comments [facility],non-[facility] Affiliates and Associated Physician Practices is amultiple site organization consisting of ambulatory clinics and hospital sitesin [place], [place], [place] and [place]. This disclosure is being madepursuant to the Care Everywhere program and may not contain all information available regarding this patient. Last updated 18.[facility] [employer] Allergies Active Allergy Reactions Criticality Noted Date [...] delivery: care needed at : PLEASE CALL SNF IF TRIAGED OR ADMITTED: Shasta Moore or April Colin Encounters Date Type Department Care Team Description 10/13/2024 Telephone [place] [id number] [address] Dayton Segovia MD Follow-up 10/07/2024 8:58 AM CDT - 10/07/2024 11:59 PM CDT Hospital Encounter [facility] - Electrophysiology [address] [place] [address] Dayton Segovia MD Discharge Disposition: Home or Self Care 09/30/2024 11:00 AM DIRECTOR DIGITAL Procedure visit [place] [id number] [facility] [address] [place] [address] Dayton Segovia MD Chronic migraine without aura without status migrainosus, not intractable ; Cervicalgia; Abnormal brain MRI; Myoclonus; Cervicogenic headache; Whiplash injury to neck, initial encounter; Chronic tension-type headache, not intractable 09/29/2024 Orders Only [place] [id number] [facility] [address] [place] [address] Dayton Segovia MD Chronic migraine without aura without status migrainosus, not intractable 09/08/2024 Orders Only [facility] [address] [facility] [address] [place] [address] Dayton Segovia MD Chronic migraine without aura without status migrainosus, not intractable 09/07/[address] [place] [address] Dayton Segovia MD Concerns 07/30/[address] [place] [address] Dayton Segovia MD Insurance Issue/question from Last [...] Comments Blood Pressure 114/72 06/09/2024 3:01 PM DIRECTOR DIGITAL Pulse 73 06/09/2024 3:01 PM DIRECTOR DIGITAL Temperature 36.5 C (97.7 F) 06/09/2024 10:10 AM DIRECTOR DIGITAL Respiratory Rate 15 06/09/2024 3:01 PM DIRECTOR DIGITAL Oxygen Saturation 97% 06/09/2024 3:01 PM DIRECTOR DIGITAL Inhaled Oxygen Concentration - - Weight 58.1 kg (128 lb) 09/30/2024 11:16 AM DIRECTOR DIGITAL Height 157.5 cm (5' 2 ) 09/30/2024 11:16 AM DIRECTOR DIGITAL Body Mass Index 23.41 09/30/2024 11:16 AM DIRECTOR DIGITAL Plan of Treatment Upcoming Encounters Date Type Department Care Team (Late st Contact Info) Description 12/24/2024 8:40 AM CDT Procedure visit [facility] Health Neurosciences [address] [facility] [address] [place] [address] [place] [address] [address] 04/04/2025 9:00 AM CDT Appointment [facility] Imaging Services - MRI [address] [facility] [address] [place] [address] [place] [address] [id number] Health Maintenance Due Date Last Done Comments PAP SMEAR 1991 HIV SCREENING 2006 HEPATITIS C SCREENING 02/02/2009 DTAP/TDAP/TD VACCINES (1 - Tdap) 2010 HEPATITIS B VACCINE (1 of 3 - 19+ 3-dose series) 2010 COVID-19 VACCINE (3 - 2023-2 5 season) 2024 01/30/2021, 01/09/2021 [...] * EEG (10/07/2024 6:46 PM CDT) Narrative [facility] - 10/07/2024 6:46 PM CDT Dayton Segovia MD 10/07/2024 6:48 PM [facility] - ELECTROPHYSIOLOGY [address] [facility] [address] Electroencephalogram Janny Rolle 10/07/2024 Indication: Janny Rolle is a 34 year old female who presents with jerking movements. Current Outpatient Medications Medication ascorbic acid (VITAMIN C) 500 MG tablet gabapentin (Neurontin) 100 MG capsule indomethacin (Indocin) 50 MG capsule valACYclovir (Valtrex) 500 MG tablet Vibegron (Gemtesa) 75 MG TABS Vitamin D, Cholecalciferol, 50 MCG (1999) CAPS No current facility-administered medications for this [...] ORDERABLES from Last 3 Months Care Teams News Director Relationship Specialty Start Date End Date Ana Luisa Spicer PA-C [address] [place] [address] PCP - General Physician Box Inspector 06/08/24
== END 2024-10-14 09:02 | disposition home or self-care (01) ==
PROVIDERS: PCP Nurse Practitioner Family; Visit Provider Nurse Practitioner Family
DX: M54.50 Low back pain, unspecified (principal); M54.6 Pain in thoracic spine
CPT/HCPCS: 72070; 72100

== ENCOUNTER 2024-11-17 08:09 | Outpatient (CLI) | payer OTHER, MEDICAID, SELFPAY ==
--- NOTE | ~2024-11-17 | MR_ITS ---
MRI of the cervical spine Clinical History: Cervicalgia Technique: Axial T2-weighted and gradient images, and sagittal T1-weighted, T2-weighted, and STIR antonino ges were acquired. Findings: There is no fracture or subluxation of cervical spine. Vertebral bodies maintain normal hei ght. No bone marrow signal abnormality seen. No significant disc bulge or herniation seen at any cervical level. No spinal canal stenosis, cord co mpression, or definite neural foraminal narrowing in the cervical spine. No abnormal signal seen in the spinal cord. Paravertebral soft tissues are unremarkable. Impression: No significant abnormality. Reviewed, dictated and finalized at location . Impression: No significant abnormality.
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
--- OUTSIDE RECORDS SUMMARY | 2024-11-17 08:33 | XMS_ITS | CONTINUITY OF CARE DOCUMENT ---
Author Name jordan ortega Address Unknown Organization [facility] Address [address] [facility] [address] [place] [address] Phone [phone] Care Team Providers Care Residential Treatment Staff Name Role Phone Carson WYATT, Mark Dominguez Unavailable [phone] Abhijit CATNU, Rebecca Unavailable [phone] Abhijit FREIGHT CLERK, Rebecca Unavailable PROBLEMS Condition Status Date Provider Notes Family hx of myocardial infa rction ([place]), premature active Erasmo Suzanne Dizziness active Mark Byrd MD Syncope active Mark Byrd MD ADHD active Mark Byrd MD Cardiology examination active Mark Heck ENCOUNTERS Date Type Provider Location Encounter Diag nosis - In-person encounter Office Visit April Ventimiglia [facility] Office - In-person encounter Office Visit Mark Byrd MD [facility] Cardiology examinationADHDSyncopeDizzinessFamily hx of myocardial infarction ([place]), premature VITAL SIGNS Date Observation Value Provider Body Mass Index (Ratio) 22.68 kg/m2 Sly da Ventimiglia WATER TREATMENT OPERATOR blood pressure, diastolic, standing 62 mm [Hg] April Ventimiglia WATER TREATMENT OPERATOR blood pressure, systolic, standing 100 mm [Hg] April Ventimiglia WATER TREATMENT OPERATOR blood pressure, diastolic 68 mm[Hg] Am anh Ventimiglia [facility] blood pressure, systolic 104 mm[Hg] [place] nda Ventimiglia [facility] pulse rate 100 /min April Ventimig aurora [facility] oxygen saturation, oximetry 98 % April Ventimiglia [facility] respiratory rate E&M 14 /min April Ventimiglia [facility] height E&M 62 [in_i] April Ventimig aur[facility] weight E&M 124 [lb_av] April Ventimig aurora [facility] Body Mass Index (Ratio) 23.23 kg/m2 [place] blood pressure, diastolic 80 mm[Hg] Li [employer] blood pressure, systolic 109 mm[Hg] Ashley [employer] blood pressure, systolic 109 mm[Hg] Rajesh Carmona blood pressure, diastolic 80 mm[Hg] Nirali Carmona blood pressure, cuff size regular Nirali Carmona oxygen saturation, oximetry 99 % Malcom Carmona pulse rate 87 /min Malcom Carmona weight E&M 127 [lb_av] Malcom Carmona height E&M 62 [in_i] Malcom Carmona HISTORY OF MEDICATION USE Medication Status Instructions Dates Provider Indications Com ments indomethacin 50 mg capsule active Malcom Carmona valacyclovir 500 mg tablet active Malcom Carmona dextroamphetamine-ampheta mine 10 mg tablet active Malcom Carmona SOCIAL HISTORY Date Observation Value Provider personal history of marijuana use no April Ventimiglia [facility] drug use no April Ventimig aur[facility] alcohol use, average drinks per day socia l April Ventimiglia [facility] alcohol use yes April Ventimig aur[facility] smoking status Never smoker April Spencerm iglia [facility] INSURANCE PROVIDERS Payer name Policy type / Coverage type [place] red green party ID [employer] Medicaid 0 [id number] [facility] [id number] Other [id number] TREATMENT PLAN Date Name Performer Cardiology:remains o n stimulant therapy D id discuss could contribute to symptoms u nderstanding verbalized April Linares [facility] Cardiology:Still not es dizziness with standing, BP is low normal which may contribute N o true orthostatic changes noted H er coronary calcium score is 0 E cho is normal c arotids study normal H ave recommended hydration and trial of compression stockings w ill have her return in 2 months or sooner if needed. April Linares [facility] Cardiology:No furthe r reports of syncope w ill complete tele monitor to r/o arrhythmia. To date however, NSR observed April Linares [facility] Cardiology:Check ech o, 1 mo tele, carotid, cac score Erasmo Suzanne Date Name Carotid Duplex Bilat eral CT, Coronary Calcium Score Monitor - Telemetry (Mobile Cardiac) Complete Echo HISTORY OF PROCEDURES Procedure Date Procedure Name Provider Procedure Notes S tatus CT- Coronary CA score Mark Byrd MD completed EKG Mark Byrd MD completed
--- OUTSIDE RECORDS SUMMARY | 2024-11-17 08:33 | XMS_ITS | Data Portability ---
Author Organization [place] - [facility] [place], Main Office Address [address] [place] [address] Assessment No assessment recorded. Plan of Treatment Reminders Order Date Submit Date Provider Last Modified By Organization Details Last Modified Time Details Appointments None recorde d. Lab rf (rheuma toid factor) , serum 2024 025 [facility], [address], [place], [address], 5 14:13:11 ESR (erythr ocyte sedimen tation rate), blood 2024 025 [facility], [address], [place], [address], 5 14:13:15 FRANK (antinu clear antibod ies) screen, serum 2024 025 [facility], [address], [place], [address], 5 14:13:14 TSH + free T4, serum 2024 025 [facility], [address], [place], [address], 5 14:13:04 thyroid peroxid ase (tpo) Ab, serum 2024 025 [place] [facility], [address], [place], [address], 5 14:13:19 T3, free, serum or plasma 2024 025 LATOYA [facility], [address], [place], [address], 5 14:13:20 magnesi um, serum or plasma 2024 025 LATOYA [facility], [address], [place], [address], 5 14:13:17 cobalam in and folate panel, serum 2024 025 LATOYA [facility], [address], [place], [address], 5 14:13:09 CK (creati ne kinase) , total, serum 2024 025 LATOYA [facility], [address], [place], [address], 5 14:13:16 HbA1c (hemogl obin A1c), blood 2024 025 LATOYA [facility], [address], [place], [address], 5 14:13:10 vitamin D, 25-hydr oxy, total, serum 2024 025 LATOYA [facility], [address], [place], [address], 5 14:13:12 lipid panel, serum 2024 025 LATOYA [facility], [address], [place], [address], 5 14:13:07 CMP, serum or plasma 2024 025 LATOYA [facility], [address], [place], [address], 5 14:13:06 CBC w/ auto diff 2024 025 [place] [facility], [address], [place], [address], 5 14:13:05 varicel la zoster virus IgG Ab, QL, IA, serum 2024 025 [place] [facility], [address], [place], [address], 5 14:13:13 pregnan cy test, urine 2022 023 [facility] [address], [place], [address], 3 17:41:39 urinaly sis, dipstic k 2022 023 [facility] [address], [place], [address], 3 17:41:14 urinaly sis, dipstic k 2022 023 [email or web address] [facility] [address], [place], [address], 3 10:23:31 urinaly sis, dipstic k 2022 023 [email or web address] [facility] [address], [place], [address], 3 14:35:[address] referra l 2024 025 [email or web address] Not available 5 11:04:57 cardiol ogist referra l - Please call patient to emory light appoint ment. Thank you. 2024 025 [facility] Referral Fax Line, [address], [place], [address], 11:52:08 Procedures None recorde d. Surgeries None recorde d. Imaging XR, cervica l spine, 2 or 3 view 2024 025 LATOYA [facility], [address] [place] [address] , [address], [place], [address], 5 12:54:47 MRI, cervica l spine, w/o contras t - Please call patient to emory baird 2024 025 [email or web address] [facility], [address] [place] [address] , [address], [place], [address], 5 12:01:03 XR, abdomen , 1 view 2022 023 [email or web address] [facility] (Imaging), [address], [place], [address], 3 09:29:07 Medication Orders Adderal l XR 10 mg capsule ,extend ed release 2024 025 [facility]/Pharmacy #[id number], [address], [place], [address], 5 11:04:41 nystati n 100,000 unit/mL oral suspens ion 2024 025 [email or web address] [facility]/Pharmacy #[id number], [address], [place], [address], 5 10:44:09 Adderal l 10 mg tablet 2024 025 [facility]/Pharmacy #[id number], [address], [place], [address], 5 17:09:21 famotid ine 20 mg tablet 2022 023 [facility], [address], [place], [address], 16:05:38 Gemtesa 75 mg tablet 2022 023 [facility], [address] [place] [address], [address], 16:05:56 Gemtesa 75 mg tablet 2022 023 [facility], [address] [place] [address], [address], 16:05:56 Patient TargetsNo targets recorded. Patient InstructionsNo instructions recorded. Reason for Referral Consultant In Ergonomics And Safety Referral for Sy ncope Please call patient to schedule an appointment. Thank you. 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 Marketing Programs Manager Referral for Erupt ion Referring Physician: Rebecca Lacey [facility] Medicine, Encounter Date: 11/11/2024 Results Created Date Observation Date Name Description Value Unit Range Abnormal Flag Note LastModifiedBy Organization Detail LastModifiedTime 12/31/1912/30/2022 urina lysis , dipst ick Leukocytes (reference range: negative montse/ l) Negati ve Not Available [facility] [address], [place], [address], 12/30/2022 09:08:42 12/31/1912/30/2022 urina lysis , dipst ick Nitrite (reference rage: negative mg/dl) negati ve Not Available [facility] [address], [place], [address], 12/30/2022 09:08:42 12/31/1912/30/2022 urina lysis , dipst ick Urobilinogen (reference range: 0.2-1 mg/dl) 0.2 Not Available [facility] [address], [place], [address], 12/30/2022 09:08:42 12/31/19 23 12/30/2022 urina lysis , dipst ick Protein (reference range: negative mg/dl) Negati ve Not Available [facility] [address], [place], [address], 12/30/2022 09:08:42 12/31/1912/30/2022 urina lysis , dipst ick pH (reference range: 5-7) 5.5 Not Available [facility]_ [facility] [address] [place] [address] [address], [place], [address], 12/30/2022 09:08:42 12/31/19 23 12/30/2022 urina lysis , dipst ick Blood (reference range: negative Kenan/ l) Negati ve Not Available [facility] [address] [place] [address] [address], [place], [address], 12/30/2022 09:08:42 12/31/19 23 12/30/2022 urina lysis , dipst ick Specific Atlantic (reference range: 1.005-1.030) 1.030 Not Available s [facility] [address] [place] [address] [address], [place], [address], 12/30/2022 09:08:42 12/31/1912/30/2022 urina lysis , dipst ick Ketone (reference range: negative mg/dl) Negati ve Not Available [facility] [address] [place] [address] [address], [address], 12/30/2022 09:08:42 12/31/19 23 12/30/2022 urina lysis , dipst ick Bilirubin (reference range: negative mg/dl) Negati ve Not Available [facility] [address], [place], [address], 12/30/2022 09:08:42 12/31/19 23 12/30/2022 urina lysis , dipst ick Glucose (reference range: negative mg/dl) Negati ve Not Available [facility] [address] [place] [address] [address] [facility] [address], [place], [address], 12/30/2022 09:08:42 12/31/19 23 12/30/2022 urina lysis , dipst ick Appearance Clear Not Available [facility] [address] [place], [place] [address]toribio [facility], [place], [address], 12/30/2022 09:08:42 12/31/19 23 12/30/2022 urina lysis , dipst ick Color Yellow Not Available [facility] [place] [address] [place] [address] [address] [facility], [place], [address], 12/30/2022 09:08:42 03/21/20 23 03/21/2023 urina lysis , dipst ick Leukocytes (reference range: negative montse/ l) Negati ve Not Available [facility] [address] [place], [place] [address]toribio [facility], [place], [address], 03/21/2023 09:07:35 03/21/20 23 03/21/2023 urina lysis , dipst ick Nitrite (reference rage: negative mg/dl) negati ve Not Available [facility] [address] [place], [place] [address]toribio [facility], [place], [address], 03/21/2023 09:07:35 03/21/20 23 03/21/2023 urina lysis , dipst ick Urobilinogen (reference range: 0.2-1 mg/dl) 0.2 Not Available [facility] [address], [place], [address], 03/21/2023 09:07:35 03/21/20 23 03/21/2023 urina lysis , dipst ick Protein (reference range: negative mg/dl) Negati ve Not Available [facility] [address], [place], [address], 03/21/2023 09:07:35 03/21/20 23 03/21/2023 urina lysis , dipst ick pH (reference range: 5-7) 5.5 Not Available [facility] [address] [place] [address] [address], [place], [address], 03/21/2023 09:07:35 03/21/20 23 03/21/2023 urina lysis , dipst ick Blood (reference range: negative Kenan/ l) Negati ve Not Available [facility] [address], [place], [address], 03/21/2023 09:07:35 03/21/20 23 03/21/2023 urina lysis , dipst ick Specific Atlantic (reference range: 1.005-1.030) 1.030 Not Available [facility] [address], [place], [address], 03/21/2023 09:07:35 03/21/20 23 03/21/2023 urina lysis , dipst ick Ketone (reference range: negative mg/dl) Negati ve Not Available [facility] [address] [place] [address] [address], [place], [address], 03/21/2023 09:07:35 03/21/20 23 03/21/2023 urina lysis , dipst ick Bilirubin (reference range: negative mg/dl) Negati ve Not Available [facility] [address] [place] [address] Avtoribio [facility] [address], [place], [address], 03/21/2023 09:07:35 03/21/20 23 03/21/2023 urina lysis , dipst ick Glucose (reference range: negative mg/dl) Negati ve Not Available [facility] [address] [place], [place] [address]toribio [facility] [address], [place], [address], 03/21/2023 09:07:35 03/21/20 23 03/21/2023 urina lysis , dipst ick Appearance Clear Not Available [facility] [address] [place], [place] [address], [place], [address], 03/21/2023 09:07:35 03/21/20 23 03/21/2023 urina lysis , dipst ick Color Yellow Not Available [facility] [place] [address] [place], [place] [address]e [facility] [address], [place], [address], 03/21/2023 09:07:35 05/05/2005/05/2023 urina lysis , dipst ick Leukocytes (reference range: negative montse/ l) Negati ve Not Available s_[address], [place], [address], 05/01/2023 17:29:48 05/05/2005/05/2023 urina lysis , dipst ick Nitrite (reference rage: negative mg/dl) negati ve Not Available s_[address], [place], [address], 05/01/2023 17:29:48 05/05/2005/05/2023 urina lysis , dipst ick Urobilinogen (reference range: 0.2-1 mg/dl) 0.2 Not Available [address], [place], [address], 05/01/2023 17:29:48 05/05/2005/05/2023 urina lysis , dipst ick Protein (reference range: negative mg/dl) Negati ve Not Available [address], [place], [address], 05/01/2023 17:29:48 05/05/2005/05/2023 urina lysis , dipst ick pH (reference range: 5-7) 6.5 Not Available [address], [place], [address], 05/01/2023 17:29:48 05/05/2005/05/2023 urina lysis , dipst ick Blood (reference range: negative Kenan/ l) Non-He molyze d: Trace Not Available [address], [place], [address], 05/01/2023 17:29:48 05/05/2005/05/2023 urina lysis , dipst ick Specific Atlantic (reference range: 1.005-1.030) 1.010 Not Available [address], [place], [address], 05/01/2023 17:29:48 05/05/2005/05/2023 urina lysis , dipst ick Ketone (reference range: negative mg/dl) Negati ve Not Available [address], [place], [address], 05/01/2023 17:29:48 05/05/2005/05/2023 urina lysis , dipst ick Bilirubin (reference range: negative mg/dl) Negati ve Not Available [address], [place], [address], 05/01/2023 17:29:48 05/05/20 23 05/05/2023 urina lysis , dipst ick Glucose (reference range: negative mg/dl) Negati ve Not Available [address], [place], [address], 05/01/2023 17:29:48 05/05/2005/05/2023 urina lysis , dipst ick Appearance Slight ly Cloudy Not Available [address], [place], [address], 05/01/2023 17:29:48 05/05/2005/05/2023 urina lysis , dipst ick Color Yellow Not Available [address], [place], [address], 05/01/2023 17:29:48 05/05/20 23 05/05/2023 pregn farhad test, urine HCG negati ve Not Available [address], [place], [address], 05/01/2023 17:29:46 10/13/19 25 10/13/2024 TSH+F REE T4 TSH 1.600 uIU/m L 0.450- 4.500 normal Not Available [facility] ([facility]) [address] [facility], [place], [address], 10/13/2024 14:13:03 10/13/19 25 10/13/2024 TSH+F REE T4 T4,free(dire ct) 1.47 NG/dL 0.82-1 .77 normal Not Available [facility] ([facility]) [address] [facility], [place], [address], 10/13/2024 14:13:03 10/13/19 25 10/12/2024 CBC WITH DIFFE RENTI AL/PL ATELE T WBC 5.6 x10e3 /uL 3.4-10 .8 normal Not Available [facility] ([facility]) [address] [facility], [place], [address], 10/13/2024 14:13:05 10/13/19 25 10/12/2024 CBC WITH DIFFE RENTI AL/PL ATELE T RBC 4.55 x10e6 /uL 3.77-5 .28 normal Not Available [facility] ([facility]) [address] [facility], [place], [address], 10/13/2024 14:13:05 10/13/19 25 10/12/2024 CBC WITH DIFFE RENTI AL/PL ATELE T hemoglobin 13.6 g/dL 11.1-1 5.9 normal Not Available [facility] ([facility]) [address] [place], [address], 10/13/2024 14:13:05 10/13/19 25 10/12/2024 CBC WITH DIFFE RENTI AL/PL ATELE T hematocrit 41.4 % 34.0-4 6.6 normal Not Available [facility] ([facility]) [address] [place], [address], 10/13/2024 14:13:05 10/13/19 25 10/12/2024 CBC WITH DIFFE RENTI AL/PL ATELE T MCV 91 fL 79-97 normal Not Available [facility] ([facility]) [address] [place], [address], 10/13/2024 14:13:05 10/13/19 25 10/12/2024 CBC WITH DIFFE RENTI AL/PL ATELE T MCH 29.9 pg 26.6-3 3.0 normal Not Available [facility] ([facility]) [address] [facility], [place], [address], 10/13/2024 14:13:05 10/13/19 25 10/12/2024 CBC WITH DIFFE RENTI AL/PL ATELE T MCHC 32.9 g/dL 31.5-3 5.7 normal Not Available [facility] ([facility]) [address] [facility], [place], [address], 10/13/2024 14:13:05 10/13/19 25 10/12/2024 CBC WITH DIFFE RENTI AL/PL ATELE T RDW 12.5 % 11.7-1 5.4 Not Available [facility] ([facility]) [address] [facility], [place], [address], 10/13/2024 14:13:05 10/13/19 25 10/12/2024 CBC WITH DIFFE RENTI AL/PL ATELE T platelets 216 x10e3 /uL 150-45 0 normal Not Available [facility] ([facility]) [address] [place], [address], 10/13/2024 14:13:05 10/13/19 25 10/12/2024 CBC WITH DIFFE RENTI AL/PL ATELE T neutrophils 42 % not estab. normal Not Available [facility] ([facility]) [address] [place], [address], 10/13/2024 14:13:05 10/13/19 25 10/12/2024 CBC WITH DIFFE RENTI AL/PL ATELE T lymphs 49 % not estab. normal Not Available [facility] ([facility]) [address] [place], [address], 10/13/2024 14:13:05 10/13/19 25 10/12/2024 CBC WITH DIFFE RENTI AL/PL ATELE T monocytes 7 % not estab. normal Not Available [facility] ([facility]) [address] [place], [address], 10/13/2024 14:13:05 10/13/19 25 10/12/2024 CBC WITH DIFFE RENTI AL/PL ATELE T eos 1 % not estab. normal Not Available [facility] ([facility]) [address] [facility], [place], [address], 10/13/2024 14:13:05 10/13/19 25 10/12/2024 CBC WITH DIFFE RENTI AL/PL ATELE T basos 1 % not estab. 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 0 normal Not Available [facility] ([facility]) [address] [place], [address], 10/13/2024 14:13:05 10/13/19 25 10/12/2024 CBC WITH DIFFE RENTI AL/PL ATELE T lymphs (absolute) 2.7 x10e3 /uL 0.7-3. 1 normal Not Available [facility] ([facility]) [address] [place], [address], 10/13/2024 14:13:05 10/13/19 25 10/12/2024 CBC WITH DIFFE RENTI AL/PL ATELE T monocytes(ab solute) 0.4 x10e3 /uL 0.1-0. 9 normal Not Available [facility] ([facility]) [address] [facility], [place], [address], 10/13/2024 14:13:05 10/13/19 25 10/12/2024 CBC WITH DIFFE RENTI AL/PL ATELE T eos (absolute) 0.1 x10e3 /uL 0.0-0. 4 normal Not Available [facility] ([facility]) [address] [facility], [place], [address], 10/13/2024 14:13:05 10/13/19 25 10/12/2024 CBC WITH DIFFE RENTI AL/PL ATELE T baso (absolute) 0.0 x10e3 /uL 0.0-0. 2 normal Not Available [facility] ([facility]) [address] [facility], [place], [address], 10/13/2024 14:13:05 10/13/19 25 10/12/2024 CBC WITH DIFFE RENTI AL/PL ATELE T immature granulocytes 0 % not estab. Not Available [facility] ([facility]) [address] [facility], [place], [address], 10/13/2024 14:13:05 10/13/19 25 10/12/2024 CBC WITH DIFFE RENTI AL/PL ATELE T immature grans (abs) 0.0 x10e3 /uL 0.0-0. 1 Not Available [facility] ([facility]) [address] [facility], [place], [address], 10/13/2024 14:13:05 10/13/19 25 10/12/2024 CBC WITH DIFFE RENTI AL/PL ATELE T NRBC [employer]ED[employer] P[employer] INSTALLER Not Available [facility] ([facility]) [address] [place], [address], 10/13/2024 14:13:05 10/13/19 25 10/12/2024 CBC WITH DIFFE RENTI AL/PL ATELE T hematology comments: [employer]ED[employer] P[employer] INSTALLER Not Available [facility] ([facility]) [address] [facility], [place], [address], 10/13/2024 14:13:05 10/13/19 25 10/13/2024 COMP. METAB OLIC PANEL (14) glucose 81 mg/dL 70-99 normal Not Available [facility] ([facility]) [address] [facility], [place], [address], 10/13/2024 14:13:06 10/13/19 25 10/13/2024 COMP. METAB OLIC PANEL (14) BUN 14 mg/dL 6-20 normal Not Available [facility] ([facility]) [address] [facility], [place], [address], 10/13/2024 14:13:06 10/13/19 25 10/13/2024 COMP. METAB OLIC PANEL (14) creatinine 0.85 mg/dL 0.57-1 .00 normal Not Available [facility] ([facility]) [address] [facility], [place], [address], 10/13/2024 14:13:06 10/13/19 25 10/13/2024 COMP. METAB OLIC PANEL (14) eGFR 93 mL/mi n/1.7 3 >59 normal Not Available [facility] ([facility]) [address] [facility], [place], [address], 10/13/2024 14:13:06 10/13/19 25 10/13/2024 COMP. METAB OLIC PANEL (14) BUN/creatini ne ratio 16 9-23 normal Not Available [facility] ([facility]) [address] [facility], [place], [address], 10/13/2024 14:13:06 10/13/19 25 10/13/2024 COMP. METAB OLIC PANEL (14) sodium 137 mmol/ L 134-14 4 normal Not Available [facility] ([facility]) [address] [facility], [place], [address], 10/13/2024 14:13:06 10/13/19 25 10/13/2024 COMP. METAB OLIC PANEL (14) potassium 4.0 mmol/ L 3.5-5. 2 normal Not Available [facility] ([facility]) [address] [facility], [place], [address], 10/13/2024 14:13:06 10/13/19 25 10/13/2024 COMP. METAB OLIC PANEL (14) chloride 103 mmol/ L 96-106 normal Not Available [facility] ([facility]) [address] [facility], [place], [address], 10/13/2024 14:13:06 10/13/19 25 10/13/2024 COMP. METAB OLIC PANEL (14) carbon dioxide, total 22 mmol/ L 20-29 normal Not Available [facility] ([facility]) [address] [facility], [place], [address], 10/13/2024 14:13:06 10/13/19 25 10/13/2024 COMP. METAB OLIC PANEL (14) calcium 9.4 mg/dL 8.7-10 .2 normal Not Available [facility] ([facility]) [address] [place], [address], 10/13/2024 14:13:06 10/13/19 25 10/13/2024 COMP. METAB OLIC PANEL (14) protein, total 7.2 g/dL 6.0-8. 5 normal Not Available [facility] ([facility]) [address] [place], [address], 10/13/2024 14:13:06 10/13/19 25 10/13/2024 COMP. METAB OLIC PANEL (14) albumin 4.7 g/dL 3.9-4. 9 normal Not Available [facility] ([facility]) [address] [facility], [place], [address], 10/13/2024 14:13:06 10/13/19 25 10/13/2024 COMP. METAB OLIC PANEL (14) globulin, total 2.5 g/dL 1.5-4. 5 Not Available [facility] ([facility]) [address] [facility] [place], [address], 10/13/2024 14:13:06 10/13/19 25 10/13/2024 COMP. METAB OLIC PANEL (14) bilirubin, total 0.5 mg/dL 0.0-1. 2 normal Not Available [facility] ([facility]) [address] [place], [address], 10/13/2024 14:13:06 10/13/19 25 10/13/2024 COMP. METAB OLIC PANEL (14) alkaline phosphatase 58 IU/L 44-121 normal Not Available [facility] ([facility]) [address] [facility] [place], [address], 10/13/2024 14:13:06 10/13/19 25 10/13/2024 COMP. METAB OLIC PANEL (14) AST (SGOT) 15 IU/L 0-40 normal Not Available [facility] ([facility]) [address] [facility] [place], [address], 10/13/2024 14:13:06 10/13/19 25 10/13/2024 COMP. METAB OLIC PANEL (14) ALT (SGPT) 11 IU/L 0-32 normal Not Available [facility] ([facility]) [address] [place], [address], 10/13/2024 14:13:06 10/13/19 25 10/13/2024 LIPID PANEL cholesterol, total 175 mg/dL 100-19 9 normal Not Available [facility] ([facility]) [address] [place], [address], 10/13/2024 14:13:07 10/13/19 25 10/13/2024 LIPID PANEL triglyceride s 117 mg/dL 0-149 normal Not Available [facility] ([facility]) [address] [facility], [place], [address], 10/13/2024 14:13:07 10/13/19 25 10/13/2024 LIPID PANEL HDL cholesterol 50 mg/dL >39 normal Not Available [facility] ([facility]) [address] [facility], [place], [address], 10/13/2024 14:13:07 10/13/19 25 10/13/2024 LIPID PANEL VLDL cholesterol humberto 21 mg/dL 5-40 Not Available [facility] ([facility]) [address] [facility], [place], [address], 10/13/2024 14:13:07 10/13/19 25 10/13/2024 LIPID PANEL LDL chol calc ([facility]) 104 mg/dL 0-99 above high normal Not Available [facility] ([facility]) [address] [facility], [place], [address], 10/13/2024 14:13:07 10/13/19 25 10/13/2024 LIPID PANEL LDL calc comment: [employer]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 Not Available [facility] ([facility]) [address] [place], [address], 10/13/2024 14:13:08 10/13/19 25 10/13/2024 HEMOG LOBIN A1C hemoglobin A1C 5.2 % 4.8-5. 6 normal Predi abete s: 5.7 - 6.4 Diabe piter: >6.4 Glyce lucretia contr ol for adult s with diabe piter: <7.0 Not Available [facility] ([facility]) [address] [place], [address], 10/13/2024 14:13:10 10/13/19 25 10/13/2024 RHEUM ATOID FACTO R (RF) rheumatoid factor (rf) <10.0 IU/mL <14.0 Not Available [facility] ([facility]) [address] [facility], [place], [address], 10/13/2024 14:13:11 10/13/19 25 10/13/2024 VITAM IN D, 25-HY DROXY vitamin D, 25-hydroxy 22.2 NG/mL 30.0-1 00.0 below low normal Vitam in D defic iency has been defin ed by the Insti tute of Medic ine and an Endoc rine Socie ty pract ice guide line as a level of serum 25-OH vitam in D less than 20 ng/mL (1,2) . The Endoc rine Socie ty went on to [facility] er defin e vitam in D insuf ficie ncy as a level betwe en 21 and 29 ng/mL (2). 1. IOM (Inst itute of Medic ine). 2009. Dieta ry refer ence intak es for calci um and D. Shahnaz walton [place]: The [facility] . 2. Preston marks MF, Nidhi cox [place], Tavia off-F keila i MENA, et al. Evalu ation , treat ment, and preve ntion of vitam in D defic iency : an Endoc rine Socie ty clini humberto pract ice guide line. JCEM. 2010; 96(7) :1911 -30. Not Available [facility] ([facility]) [address] [place], [address], 10/13/2024 14:13:12 10/13/19 25 10/13/2024 VARIC LISSETH- ZOSTE R V AB, IGG varicella zoster IgG REACTI VE non reacti ve Ple ase note refer ence inter loli sneed e A React uday resul t is consi dered evide nce of immun ity to VZV. React uday indic ates that VZV IgG was detec beny consi stent with previ ous infec tion and/o r vacci natio n. A Non React uday resul t indic ates that VZV IgG was not detec beny sugge sting that immun ity has not been acqui red. Not Available [facility] ([facility]) [address] [facility], [place], [address], 10/13/2024 14:13:13 10/13/19 25 10/13/2024 FRANK W/REF MILES IF POSIT UDAY FRANK direct NEGATI VE negati ve Not Available [facility] ([facility]) [address] [facility], [place], [address], 10/13/2024 14:13:14 10/13/19 25 10/12/2024 SEDIM ENTAT ION RATE- WESTE RGREN sedimentatio n rate-westerg armando 4 mm/HR 0-32 normal Not Available [facility] ([facility]) [address] [place], [address], 10/13/2024 14:13:15 10/13/19 25 10/13/2024 CREAT INE KINAS E,TOT AL creatine kinase,total 62 U/L 32-182 normal Not Available [facility] ([facility]) [address] [place], [address], 10/13/2024 14:13:16 10/13/19 25 10/13/2024 MAGNE SIUM magnesium 2.2 mg/dL 1.6-2. 3 normal Not Available [facility] ([facility]) [address] [place], [address], 10/13/2024 14:13:17 10/13/19 25 10/13/2024 THYRO ID PEROX IDASE (TPO) AB thyroid peroxidase (tpo) Ab 19 IU/mL 0-34 normal Not Available [facility] ([facility]) [address] [facility], [place], [address], 10/13/2024 14:13:19 10/13/19 25 10/13/2024 TRIIO DOTHY IMANI E (T3), FREE triiodothyro nine (T3), free 3.3 pg/mL 2.0-4. 4 normal Not Available [facility] ([facility]) [address] [facility], [place], [address], 10/13/2024 14:13:20 12/05/19 23 12/04/2022 MAMMO , diagn ostic , digit al, bilat eral No observ ation record ed. [email or web address] [place] [address] [facility] [address], [place], [address], 12/09/2022 11:11:54 05/01/2005/01/2023 XR, abdom en, 1 view [facility] [address] [place] [address] Patien t Name: JANNY ROLLE Access ion #: [id number] Sex: F : 1989 [address] D[address] [...] CT may be consid ered to magnus r evalua te. Electr onical ly Signed by: Narendra Knight at 2022 18:12: 08 PM Page 1 [email or web address] [facility] (Imaging) [address] [place], [address], 05/09/2023 12:06:40 10/12/1909/25/2024 imagi ng/di agnos tic resul t No observ ation record ed. [address], [place], [address], 10/11/2024 16:43:05 10/14/19 25 10/13/2024 XR, cervi humberto spine , 2 or 3 view No observ ation record ed. [email or web address] [address], [place], [address], 10/14/2024 10:30:03 10/15/19 25 10/14/2024 XR, thora cic spine , 2 view No observ ation record ed. [email or web address] [address], [place], [address], 10/14/2024 12:12:22 11/08/19 25 11/06/2024 US, echoc ardio gram No observ ation record ed. [email or web address] [facility] [address], [place], [address], 11/08/2024 13:55:01 11/10/19 25 11/06/2024 CT, coron oscar calci um score No observ ation record ed. [email or web address] [facility] [address], [place], [address], 11/09/2024 18:24:03 11/11/19 25 11/09/2024 US, sade hua, jeremy id arter y No observ ation record ed. [facility] [address], [place], [address], 11/10/2024 16:07:36 Result Notes None recorded. Problems Name Problem SNOMED Code Status Onset Date Resolution Date Notes Provider Name and Address Organization Details Recorded Time Irritable bowel syndrome 18159370 Active Not Available [facility] 3 15:19:27 Acne 89910871 Active Not Available [facility] 3 15:19:27 Suprapubic pain 428832390 Active Not Available [facility] 3 15:19:27 Asthma 066394622 Active 2016 Not Available [facility] 3 15:19:27 Abdominal pain 77642226 Active Not Available [facility] 3 15:19:27 Vaginitis 25318068 Active Not Available [facility] 3 15:19:27 Menometrorrha david 025079970 Active Not Available [facility] 3 15:19:27 Restless legs 36795916 Active 2019 Not Available [facility] 3 15:19:27 Depressive disorder 19890497 Active Not Available [facility] 3 15:19:27 Sinusitis 81461285 Active Not Available [facility] 3 15:19:27 Bacterial vaginosis 855053292 Active Not Available [facility] 3 15:19:27 Anxiety 41067278 Active Not Available [facility] 3 15:19:27 Morning sickness 81351770 Active Not Available [facility] 3 15:19:28 Vulvitis 65409205 Active Not Available [facility] 3 15:19:28 Acute cystitis 81738938 Active Not Available [facility] 3 15:19:28 Tingling pain 988136165 Active 2019 Not Available [facility] 3 15:19:28 Loss of hair 815270055 Active 2022 GIO Burks [address], [place], [address] , [place] [facility] 3 08:12:59 Paresthesia of upper limb 72947191 Active 2022 GIO Burks [address], [place], [address] , [place] [facility] 3 08:18:51 Hearing loss 30072230 Active 2022 GIO Burks [address], [place], [address] , [employer] [place] [employer] [facility] 3 08:22:07 Strain of neck muscle 221246295 Active 2022 GIO Burks [address], [place], [address] , [place] [employer] [facility] 3 08:24:19 Increased frequency of urination 273942816 Active 2022 Allen Leach NP [address], [place], [address] , [place] [employer] [facility] 3 09:23:26 Nocturia 313806358 Active 2022 Allen Leach NP [address], [place], [address] , [place] [facility] 3 14:47:32 Urgent desire to urinate 76484324 Active 2022 Allen Leach NP [address], [place], [address] , [place] [facility] 3 14:50:22 Stomach cramps 32498088 Active 2022 MERRILL Bryan [address], [place], [address] , [place] [facility] [place] [facility] 3 17:29:43 Syncope 093756209 Active 2024 Rebecca Abhijit, JOURNALIST-C [address], [place], [address] , [employer] [employer] 5 16:17:54 Attention deficit hyperactivity disorder 551357975 Active 2024 KARENA Devine [address], [place], [address] , [facility] 5 16:34:10 Candidiasis of mouth 80239294 Active 2024 KARENA Devine [address], [place], [address] , [facility] [employer] 5 17:01:24 Stiff neck 692368414 Active 2024 KARENA Devine [address], [place], [address] , [facility] [employer] 5 17:02:08 Neck pain 61118435 Active 2024 KARENA Devine [address], [place], [address] , [email or web address] 5 17:02:19 Involuntary movement 285954512 Active 2024 KARENA Devine [address], [place], [address] , [facility] [employer] 5 17:04:38 Herpes zoster 7371886 Active 2024 KARENA Devine [address], [place], [address] , [facility] [employer] 5 15:08:50 Low back pain 389555699 Active 2024 KARENA Devine [address], [place], [address] , [facility] 5 08:31:04 Thoracic back pain 355810665 Active 2024 KARENA Devine [address], [place], [address] , [facility] [employer] [facility] 08:31:15 Eruption 015694404 Active 2024 KARENA Devine [address] [facility] [address], [place], [address] , [facility] [facility] 10:54:06 Problem Notes None recorded. Procedures Surgical History Date Name Laterality Status Provider Name and Address Organization Details Recorded Time Foot Surgery completed Not Available [facility] 09/25/2022 15:15:20 section completed Not Available [facility] 09/25/2022 15:15:20 Imaging Results Imaging Date Name Status LastModified by Organization Details LastModified Time 12/04/2022 MAMMO, diagnostic, digital, bilateral completed [email or web address] [address] [place] [address], [address], 12/09/2022 11:11:54 05/01/2023 XR, abdomen, 1 view [address] (Imaging) [address] [facility], [place], [address], 05/09/2023 12:06:40 09/25/2024 imaging/diagnostic result active [address], [address], 10/11/2024 16:43:05 10/13/2024 XR, cervical spine, 2 or 3 view completed [address] [place] [address], [address], 10/14/2024 10:30:03 10/14/2024 XR, thoracic spine, 2 view completed [email or web address] [address] [place] [address], [address], 10/14/2024 12:12:22 11/06/2024 US, echocardiogram completed [address] [facility] [address], [place], [address], 11/08/2024 13:55:01 11/06/2024 CT, coronary calcium score completed [facility] [address], [place], [address], 11/09/2024 18:24:03 11/09/2024 US, duplex, carotid artery completed [email or web address] [facility] [address], [place], [address], 11/10/2024 16:07:36 Procedure Notes None recorded. Medical Equipment None Reported. Allergies Allergen ID Allergen Name Allergen Category Reaction Reaction Severity Criticality Documentation Date Start Date Code Code System Note Provider Name and Address Organization Details Recorded Time 80214 morphine medicatio n Not available Not available Not available 09/25/2022 7052 RxNorm Not Available [facility] 3 15:22:20 24328 Effexor medicatio n other severe Not available 09/25/20222019 81483 2 RxNorm throa t pawan ng, pupil s dilat ed, daly garcia, muscyaneth e stiff ness Not Available [facility] 3 15:22:21 Medications Name Sig [...] Not Available nystatin 100,000 unit/mL oral suspension SWISH AND SPIT 5MLS BY MOUTH 4 TIMES DAILY FOR 5 DAYS 11/11 completed Not Available Not Available Not Available venlafaxine ER 37.5 mg capsule,ext ended release [...] Not Available Not Available No t Available valacyclovi r 1 gram tablet TAKE 1 TABLET BY MOUTH EVERY 12 HOURS 11/11 completed Not Available Not Available Not Available clarithromy lillie 500 mg tablet active [...] completed Not Available Not Available Not Available dextroamphe tamine-amph etamine 10 mg tablet TAKE 1 TABLET BY MOUTH TWICE A DAY active Not Available Not Available No t Available sertraline 100 mg tablet Take 1 [...] CAPSULE BY MOUTH THREE TIMES DAILY NEEDED 09/13 /2022 completed Not Available Not Available Not Available [...] Not Available Not Available Not Available Adderall XR 10 mg capsule,ext ended release Take 1 capsule every day by oral route in the morning. 2024 active Not Available Not Available Not Avai lable hydroxyzine HCl 25 mg tablet 04/03 completed [...] Not Available Not Available Not Available hydroxyzine pamoate 25 mg capsule 04/03 completed [...] Not Available Vitals Date Recorded Body height Heart rate Body temperature Body mass index (BMI) Body weight Oxygen saturation Oxygen saturation in Arterial blood by Pulse oximetry Systolic blood pressure Diastolic blood pressure Provider Name and Address Organization Details Last Updated DateTime 3 160.02 cm 95 /min 98.4 [degF] 24.1 kg/m2 37427.2 8 g 98 % 98 % 111 mm[Hg] 78 mm[Hg] Giovanna Crowe MA [facility] [employer] [facility] 3 14:31:18 Date Recorded Body height Body mass index (BMI) Body weight Oxygen saturation Oxygen saturation in Arterial blood by Pulse oximetry Heart rate Body temperature Provider Name and Address Organization Details Last Updated DateTime 3 160.02 cm 24.8 kg/m2 28365.9 3 g 99 % 99 % 110 /min 98.4 [degF] JUAN Kraus [employer] [employer] [employer] [employer] [facility] 3 10:05:01 Date Recorded Body height Body mass index (BMI) Body weight Body temperature Heart rate Oxygen saturation Oxygen saturation in Arterial blood by Pulse oximetry Systolic blood pressure Diastolic blood pressure Provider Name and Address Organization Details Last Updated DateTime 3 160.02 cm 25.3 kg/m2 44979.7 1 g 96 [degF] 78 /min 98 % 98 % 102 mm[Hg] 60 mm[Hg] Elen Chávez RN [facility] [facility] 3 17:21:49 Date Recorded Body height Body mass index (BMI) Body weight Heart rate Body temperature Oxygen saturation Oxygen saturation in Arterial blood by Pulse oximetry Pain severity - 0-10 verbal numeric rating [Score] - Reported Systolic blood pressure Diastolic blood pressure Provider Name and Address Organization Details Last Updated DateTime 5 160.02 cm 23 kg/m2 47893.0 1 g 85 /min 98 [degF] 98 % 98 % 7 104 mm[Hg] 64 mm[Hg] Elsie Jessica MA [facility] [employer] [facility] 5 16:04:51 Date Recorded Body height Body mass index (BMI) Body weight Body temperature Heart rate Oxygen saturation Oxygen saturation in Arterial blood by Pulse oximetry Pain severity - 0-10 verbal numeric rating [Score] - Reported Systolic blood pressure Diastolic blood pressure Provider Name and Address Organization Details Last Updated DateTime 5 160.02 cm 22.3 kg/m2 03650.6 4 g 98.1 [degF] 80 /min 97 % 97 % 5 104 mm[Hg] 60 mm[Hg] Elsie Jessica MA [place] [facility] [place] [email or web address] 5 10:43:49 Social History Question Answer Notes LastModified by Organizat ion Details LastModified Time Tobacco Smoking Status Never Smoker Not Available [facility] 09/25/2022 15:15:17 What Is Your Level Of Alcohol Consumption? None [id number] Information not available 09/25/2022 If You Are , What Was Your Level Of Alcohol Consumption Prior To ? None [id number] Information not available 09/25/2022 What Is Your Level Of Caffeine Consumption? Occasional [id number].[id number] Information not available 09/25/2022 In The 14 Days Before Symptom Onset, Have You Had Close Contact With A Laboratory-confir med COVID-19 While That Case Was Ill? No [id number].[id number] Information not available 09/25/2022 In The 14 Days Before Symptom Onset, Have You Had Close Contact With A Person Who Is Under Investigation For COVID-19 While That Person Was Ill? No MIGRATION.95308 [id number] Information not available 09/25/2022 Are You Currently Employed? Yes Information not available 10/11/2024 What Type Of Diet Are You Following? REGULAR MIGRATION.68675 77421 Information not available 09/25/2022 Have There Been Any Changes To Your Family Or Social Situation? No Information no t available 10/11/2024 Do You Use Insect Repellent Routinely? No Information not available 10/11/2024 Where Do You Live? SingleLevelHouse Information not available 10/11/2024 What Was The Date Of Your Most Recent Tobacco Screening? 11/11/2024 Information not available 11/11/2024 How Many Children Do You Have? 1 [...] Anxious, Or Unable To Sleep At Night)? [id number] Information not available 10/11/2024 Do You Use Any Illicit Or Recreational Drugs? No MIGRATION.73931 [id number] Information not available 09/25/2022 Do You Use Sunscreen Routinely? No Information not available 11/11/2024 Have You Recently Traveled Abroad? No Information not available 10/11/2024 Are You Currently In School? No Information not available 10/11/2024 Do You Have Any Dietary Restrictions? No MIGRATION.55783 87721 Information not available 09/25/2022 Do You Or Have You Ever Used Any Other Forms Of Tobacco Or Nicotine? No Information not available 11/11/2024 Sex: Unknown Functional Status Question Answer Note LastModified by Organizat ion Details LastModified Time What is your exercise level? Moderate [id number] Information not available 09/25/2022 Mental Status None recorded. Family History Relationship Description Onset Age of this Age Resolved Age Notes LastModified by Organization Details LastModified Time Father Heart disease [id number].607 [id number] Not available 09/25/2022 15:15:23 Father Family history of malignant neoplasm [id number].604 [id number] Not available 09/25/2022 15:15:23 Mother Diabetes mellitus MIGRATION.226 [id number] Not available 09/25/2022 15:15:23 Medical History Condition Response BLINDNESS N CYSTITIS N RHEUMATIC FEVER N BLADDER PROBLEMS N KIDNEY STONES N Enlarged Prostate N MRSA N SLEEP APNEA N INFECTIOUS DISEASE N HEART ARRHYTHMIA N LUNG DISEASE/DISORDER N PROSTATE N INSOMNIA N HISTORY OF DRUG ABUSE N COPD N RADIATION / CHEMOTHERAPY N HIGH CHOLESTEROL / HYPERLIPIDEMIA N HYPERTHYROIDISM N UTI N BLOOD DISEASES N EDEMA N HYPOTHYROIDISM N SHINGLES N BOWEL PROBLEMS N DEPRESSION (INCLUDING POST ) Y BACK / NECK PROBLEMS N HAVE YOU BEEN HOSPITALIZED OR SEEN IN [facility] IN THE PAST YEAR ? N STROKE/TIA [...] SNOMED-CT Code Diagnosis ICD10 Code Diagnosis Note [id number] [facility] [address] [address] 06/15/2021 00:00:00 06/15/2021 18:27:30 [id number] [facility] [address] [address] 04/09/2022 00:00:00 04/09/2022 13:00:41 [id number] [facility] [address] [address] 04/26/2022 00:00:00 04/26/2022 08:44:12 [id number] [facility] [address] [address] 05/13/2022 00:00:00 05/13/2022 13:21:06 [id number] [facility] [address] [place] [address] 06/24/2022 00:00:00 06/24/2022 14:32:13 [id number] [facility] [address] [place] [address] 09/23/2022 00:00:00 09/23/2022 14:42:42 [id number] GIO Burks [facility] Arpita palacio [address] [facility] [address] [place] [address] 10/14/2022 07:59:26 10/14/2022 08:31:32 Loss of hair 232453658 L65.9 Has noticed hair loss for last few years, mainly around crown of head but noticing it more in the front.We have gotten labs and all have been within normal limits.Michel wolfe send to dermatolog y to evaluate further. Paresthesi a of upper limb 65144510 R20.2 Right side. Possible ulnar tunnel vs. carpal tunnel based on symptoms/n erve impairment .Advised she follow-up with neurologis t to see if they do NCS.Will send referral as a back-up to ortho if needed to evaluate. Hearing loss 13080402 H9 1.93 Will send for audiology testing.Ea rs clear on exam, no cerumen impaction. Strain of neck muscle 36 3768329 S16.1XXA Advised to work on stretching /exercises at home. [id number] Allen Leach NP [facility] [address] [place] [address] 12/30/2022 14:03:08 12/30/2022 14:46:21 Increased frequency of urination 345675318 R35.0 UA is negative for infection. PVR [...] bladder irritants. Follow-up in 4 weeks. Nocturia 318225629 R35.1 Limit fluids 2 hours prior to bedtime Urgent dayday brielle to urinate 72740304 R39.15 [id number] Allen Leach NP [facility] [address] [address] 03/21/2023 09:49:13 03/21/2023 10:20:13 Increased frequency of urination 356065699 R35.0 UA is negative for infection. PVR [...] Patient elects to follow-up with me at [facility] in 6 months. Nocturia 174134120 R35.1 Limit fluids 2 hours prior to bedtime Urgent dayday brielle to urinate 28486193 R39.15 [id number] MERRILL Bryan [facility] [address] [place] [address] 05/01/2023 17:13:36 05/01/2023 17:42:12 Stomach cramps 49010453 R10.9 New problemAdv ised to Go to ED for worsening abdominal pain, N/V/D or fever. Anti-reflu x measures reviewed: avoid spicy foods, recumbency after eating. Small meals recommende d. Take medication on empty stomach with full glass water.Preg madelin test neg today, urine dip unremarkab leStart famotidine 20mg dailyWill send for KUB [id number] KARENA Devine [facility] Primary Care [facility] [address] [facility] [address] [place] [address] 10/11/2024 15:49:26 10/11/2024 16:43:40 Adult health examination 161074267 Z00.00 Discussed medication compliance and routine follow up.Discuss ed healthy diet and routine exercise.Zahraa barbosawed vaccine records and made recommenda tions as needed.Enc ouraged annual eye and dental exams, as well as twice yearly dental cleanings. Will check screening labs as listed below. Syncope 766885754 R55 WIll refer to cardiology as listed below. Attention deficit hyperactivity disorder 504591981 F90.9 Will start treatment as listed below, patient to follow up in one month, sooner if needed.Nancy tyra verbalized understand ing of CSA and is agreeable to routine office visits and random UDS. Candidiasis of mouth 797 36487 B37.0 Will treat as listed below. Neck pain 19548962 M54.2 Will attempt imaging as listed below due to numbness and tingling of bilateral upper and lower extremitie s. Involuntary movement 267 736908 R25.9 Continue to follow neurology as directed. History of herpes zoster 3542218557 47625 Z86.19 Will check labs as listed below due to rash being potential shingles Family his tory of Autoimmune disease 784127780 Z83.2 Will check labs as listed below. Family his tory of Thyroid disorder 355246859 Z83.49 Will check labs as listed below. Family his tory of Cardiovascular disease 468187164 Z82.49 Will check labs as listed below. [id number] Rebecca Lacey, MERRILL-[facility] Primary [facility] [address] [facility] [address] [place] [address] 11/11/2024 10:25:00 11/11/2024 11:04:56 Eruption 610400669 R21 Attention deficit hyperactivity disorder 967510893 F90.[address] refill: 10/11/24UDS UTDlast appt: 11/11/24ne xt appt: 3 months, sooner if needed Syncope 746898295 R55 currently wearing 30 day heart monitor.fo [facility]. Health Concerns Section Related Observation LastModified by Organization Detai ls LastModified Time None Recorded Concern Status LastModified by Organization Details LastModified Time None Recorded Advance Directives Directive None Recorded Payers Encounter Date Sequence Insurance Name Policy Number Policy Eduardo Covered Member ID Eduardo Member ID Guarantor Name 12/30/2022 1 [place] [id number] Janny Alberto Wyckoff [id number] Janny Alberto Wyckoff 12/30/2022 2 [facility] (MEDICAID O) [id number] Janny Alberto Aquilino [id number] Janny M Aquilino 03/21/2023 1 [place] [id number] Janny Alberto Wyckoff [id number] Janny Alberto Wyckoff 03/21/2023 2 [facility] (MEDICAID O) [id number] 0003 Janny Alberto Wyckoff [id number] Janny M Wyckoff 05/01/2023 1 [place] [id number] Janny M Wyckoff [id number] Janny M Wyckoff 05/01/2023 2 [facility] (MEDICAID HMO) [id number] 0003 Janny Alberto Aquilino [id number] Janny M Aquilino 10/11/2024 1 [facility] [id number] Janny M Wyckoff [id number] Janny M Aquilino 10/11/2024 2 [place] [facility] Janny Alberto Wyckoff [id number] Janny M Wyckoff 11/11/2024 1 [facility] [id number] Janny M Wyckoff [id number] Janny M Aquilino 11/11/2024 2 [place] [facility] Janny Alberto Wyckoff [id number] Janny Alberto Wyckoff Notes Date Note Type Note Provider Name and Address Organization Details Recorded Time 12/30/2022 text/html 05/13/2022clark astudillo presents to the [...] to stop due to side effects--rx'd by STRAIGHTENING MACHINE OPERATOR.-PREVIOUSLY TRIALED MEDS: Denies-DIABETES: Denies-NEUROLOGIC ISSUES: Chronic migraines-GI ISSUES: Denies-PRIOR /STRAIGHTENING MACHINE OPERATOR OPERATIONS:-BLOOD THINNERS: Fish oilUA- negative for blood [...] and waking up 3-4x a night. Her Network Control Operators Supervisor recommended that she discuss Gemtesa today. UA- negative for blood or infection Allen Leach NP [address] [facility], [facility] [address], [place], [address], [facility] [employer] 12/30/2022 14:51:02 03/21/2023 text/html 2Pclark astudillo presents to the office with complaints [...] to stop due to side effects--rx'd by STRAIGHTENING MACHINE OPERATOR.-PREVIOUSLY TRIALED MEDS: Denies-DIABETES: Denies-NEUROLOGIC ISSUES: Chronic migraines-GI ISSUES: Denies-PRIOR /STRAIGHTENING MACHINE OPERATOR OPERATIONS:-BLOOD THINNERS: Fish oilUA- negative for blood [...] and waking up 3-4x a night. Her Network Control Operators Supervisor recommended that she discuss Gemtesa today. UA- [...] negative for blood or infection Allen Leach DREDGE PIPE INSTALLER [address], [place], [address], [employer] 03/21/2023 10:24:22 05/01/2023 text/html 1. Pt in [...] MERRILL Bryan [address], [place], [address], [employer] 05/01/2023 20:20:31 10/11/2024 text/html Patient is a 34 year old female that presents to the office for annual wellness. Patient reports having a recent infection that was treated by her marketing information manager. Patient was on Doxycycline followed by Moxifloxacin. [...] past, would like to follow up with tennis racket repairer. Patient reports a rash to the right [...] ([facility])WWE- UTD (November 2023)- sees gynecologyMammogra m-age 63Glh-Jvpvz-Evcy- KARENA Devine [address], [address], [place], [address], [employer] 10/12/2024 22:48:14 11/11/2024 text/html Patient is a 34 year old female that presents to the office for 3 month follow up. Patient reports she is doing well since starting the Adderall. Patient reports she does sometimes forget to take the second dose. Patient continues to have rash on left side of neck and involuntary head movement.Patient is scheduled for MRI on Friday. Patient followed up with tennis racket repairer, all tests so far have been normal. Currently wearing 30 day heart monitor. KARENA Devine [address], [address], [place], [address], [employer] 11/11/2024 12:06:48 OBGyn Episode No OBEpisode recorded.
--- OUTSIDE RECORDS SUMMARY | 2024-11-17 08:33 | XMS_ITS | Clinical Summary ---
Author Organization [facility] Address [address] [place] [address] Care Team Providers Care Muffler Installer Name Role Phone Anjana Conner MD Primary [...] Every 3 Years 1991 Annual Physical 1994 Hepatitis C 2009 DTaP, Tdap and Td Vaccines ( 1 - Tdap) 2010 Hepatitis B Vaccines (1 of 3 - 19+ 3-dose series) 2010 Cervical Cancer Screening Pa p with HPV Testing (Age 30 to 64) Every 5 Years 2021 Cervical Cancer Screening with HPV 2021 COVID-19 Vaccine ( - 2023-2 5 season) 2024 HPV Vaccines Aged Out No longer eligi ble based on patient's age to complete this topic Meningococcal B Vaccine Aged Out No l onger eligible based on patient's age to complete this topic Meningococcal Vaccine Aged Out No teodoro merlin eligible based on patient's age to complete this topic Pneumococcal Vaccine: Pediat rics (0 to 5 Years) and At-Risk Patients (6 to 49 Years) Aged Out No longer eligible b ased on patient's age to complete this topic RSV Immunizations Under 20 Months Aged Out No longer eligible based on patient's age to complete this topic Insurance [place] [address] [place] [address] Care Teams Muffler Installer Relationship Specialty Start Date End Date Anjana Conner MD [address] [place] [address] [place] [address] PCP - General FAMILY PRACTICE 09/19/20
== END 2024-11-17 08:10 | disposition home or self-care (01) ==
LOC: ANHIMG 08:13
PROVIDERS: PCP Nurse Practitioner Family; Visit Provider Nurse Practitioner Family
DX: M54.2 Cervicalgia (principal)
CPT/HCPCS: 72141

== ENCOUNTER 2025-01-04 11:06 | Outpatient (CLI) | payer OTHER, MEDICAID, SELFPAY ==
--- NOTE | ~2025-01-04 | US_ITS ---
Pelvic ultrasound. Clinical History: Pelvic pain Technique: Realtime transabdominal and transvaginal scanning of the pelvis was performed. Color flow Doppler and Doppler spectral analysis were performed. Findings: The uterus is anteverted. The endometrial stripe has a thickness of 5 mm. Posterior, exoph ytic fibroid measures 2.4 cm in diameter. The right ovary measures 3.4 x 3.2 x 1.6 cm. No significant right ovarian or adnexal mass is seen. The left ovary measures 2.1 x 2.6 x 1.7 cm. No significant left ovarian or adnexal mass is seen. There is no evidence of free fluid in the cul de sac. Impression: 2.4 cm exophytic fibroid. Reviewed, dictated and finalized at location . Impression: 2.4 cm exophytic fibroid.
--- OUTSIDE RECORDS SUMMARY | 2025-01-04 12:30 | XMS_ITS | CONTINUITY OF CARE DOCUMENT ---
Author Name jordan ortega Address Unknown Organization [facility] Address [address] [facility] [address] [place] [address] Phone [phone] Care Team Providers Care Desk Officer Name Role Phone Carson WYATT, Mark Dominguez Unavailable [phone] Abhijit CANTU, Rebecca Unavailable Abhijit SEA KAYAKING GUIDE, Rebecca Unavailable PROBLEMS Condition Status Date Provider Notes Cardiology examination active Mark Dominguez D ADHD active Mark Byrd MD Syncope active Mark Byrd MD Dizziness active Mark Byrd MD Family hx of myocardial infa rction ([place]), premature active Erasmo Palacios ENCOUNTERS Date Type Provider Location Encounter Diag nosis - In-person encounter Office Visit April Ventimiglia [facility] Office - In-person encounter Office Visit Mark Byrd MD [place] [facility] Cardiology examinationADHDSyncopeDizzinessFamily hx of myocardial infarction ([place]), premature VITAL SIGNS Date Observation Value Provider Body Mass Index (Ratio) 22.68 kg/m2 Sly da Ventimiglia [facility] blood pressure, diastolic, standing 62 mm [Hg] April Ventimiglia [facility] blood pressure, systolic, standing 100 mm [Hg] April Ventimiglia [facility] blood pressure, diastolic 68 mm[Hg] Am anh Ventimiglia [facility] blood pressure, systolic 104 mm[Hg] [place] nda Ventimiglia [facility] pulse rate 100 /min April Ventimig aurora [facility] oxygen saturation, oximetry 98 % April Ventimiglia [facility] respiratory rate E&M 14 /min April Ventimiglia [facility] height E&M 62 [in_i] April Ventimig aurora [facility] weight E&M 124 [lb_av] April Ventimig aurora [facility] Body Mass Index (Ratio) 23.23 kg/m2 [place] Suzanne blood pressure, diastolic 80 mm[Hg] Li nkLogic [...] history of marijuana use no April Ventimiglia [facility] drug use no April Ventimig aurora [facility] alcohol use, average drinks per day socia l April Ventimiglia [facility] alcohol use yes April Ventimig aurora [facility] smoking status Never smoker April Spencerm iglia [facility] INSURANCE PROVIDERS Payer name Policy type / Coverage type [place] red green party ID [employer] [facility] [employer] Medicaid 0 [id number] [facility] [id number] Other [id number] TREATMENT PLAN Date Name Performer Cardiology:remains o n stimulant therapy D id discuss could contribute to symptoms u nderstanding verbalized April Linares [facility] Cardiology:Still not es dizziness with standing, BP is low normal which may contribute N o true orthostatic changes noted H er coronary calcium score is 0 E cho is normal c arotids study normal H ave recommended hydration and trial of compression stockings w ill have her return in 2 months or sooner if needed. April Linares [facility] Cardiology:No furthe r reports of syncope w ill complete tele monitor to r/o arrhythmia. To date however, NSR observed April Linares [facility] Cardiology:Check ech o, 1 mo tele, carotid, cac score Erasmo Suzanne Date Name Carotid Duplex Bilat eral CT, Coronary Calcium Score Monitor - Telemetry (Mobile Cardiac) Complete Echo HISTORY OF PROCEDURES Procedure Date Procedure Name Provider Procedure Notes S tatus CT- Coronary CA score Mark Byrd MD completed EKG Mark Byrd MD completed
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
--- OUTSIDE RECORDS SUMMARY | 2025-01-04 12:30 | XMS_ITS | Data Portability ---
Author Organization [facility], Main Office Address [address] [place] [address] Assessment No assessment recorded. Plan of Treatment Reminders Order Date Submit Date Provider Last Modified By Organization Details Last Modified Time Details Appointments None recorded. Lab rf (rheumatoi d factor), serum 2024 025 [facility] [address], [place], [address], 5 14:13:11 ESR (erythrocy te sedimentat ion rate), blood 2024 025 [facility], [address], [place], [address], 5 14:13:15 FRANK (antinucle ar antibodies ) screen, serum 2024 025 [facility], [address], [place], [address], 5 14:13:14 TSH + free T4, serum 2024 025 [facility], [address], [place], [address], 5 14:13:04 thyroid peroxidase (tpo) Ab, serum 2024 025 [facility], [address], [place], [address], 5 14:13:19 T3, free, serum or plasma 2024 025 WISTER Maylin, [address], [place], [address], 5 14:13:20 magnesium, serum or plasma 2024 025 WISTER Maylin, [address], [place], [address], 5 14:13:17 cobalamin and folate panel, serum 2024 025 WISTER Maylin, [address], [place], [address], 5 14:13:09 CK (creatine kinase), total, serum 2024 025 LATOYAMARK [place], [address], [place], [address], 5 14:13:16 HbA1c (hemoglobi n A1c), blood 2024 025 [facility] [address], [place], [address], 5 14:13:10 vitamin D, 25-hydroxy , total, serum 2024 025 LATOYAMARK [place], [address], [place], [address], 5 14:13:12 lipid panel, serum 2024 025 LATOYA Newberry, [address], [place], [address], 5 14:13:07 CMP, serum or plasma 2024 025 LATOYAMARK Newberry, [address], [place], [address], 5 14:13:06 CBC w/ auto diff 2024 025 [facility], [address], [place], [address], 5 14:13:05 varicella zoster virus IgG Ab, QL, IA, serum 2024 025 [facility], [address], [place], [address], 5 14:13:13 test, urine [address], [place], [address], 3 17:41:39 urinalysis , dipstick [address], [place], [address], 3 17:41:14 urinalysis , dipstick 2022 023 [email or web address] [facility] [address], [place], [address], 3 10:23:31 urinalysis , dipstick 2022 023 [email or web address] [facility] [address], [address], 3 14:35:12 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 Thank you. 2024 025 [facility], [address], [place], [address], 11:35:[address] referral - Please call patient to schedule an appointmen t. Thank you. 2024 025 [facility] Ref[facility] Fax Line, [address], [place], [address], 11:52:08 Procedures None recorded. Surgeries None recorded. Imaging XR, cervical spine, 2 or 3 view 2024 025 LATOYA [facility], [address] [place] [address] , [address], [place], [address], 12:54:47 MRI, cervical spine, w/o contrast - Please call patient to schedule. 2024 025 [email or web address] [facility], [address] [place] [address] , [address], [place], [address], 12:01:03 XR, abdomen, 1 view 2022 023 [email or web address] [facility] ([facility]), [address], [place], [address], 3 09:29:07 Medication Orders Adderall XR 10 mg capsule,ex tended release 2024 025 [facility] #[id number], [address], [place], [address], 5 11:04:41 nystatin 100,000 unit/mL oral suspension 2024 025 [email or web address] [facility]acy #[id number], [address], [place], [address], 5 10:44:09 Adderall 10 mg tablet 2024 025 [facility] #[id number], [address], [place], [address], 17:09:21 famotidine 20 mg tablet 2022 023 [facility], [address] [facility], [place], [address], 16:05:38 Gemtesa 75 mg tablet 2022 023 [facility], [address] [facility], [place], [address], 16:05:56 Gemtesa 75 mg tablet 2022 023 [facility], [id number] [place] [address], [address], 16:05:56 Patient TargetsNo targets recorded. Patient InstructionsNo instructions recorded. Reason for Referral Pharmacy Clinical Coordinator Referral for Sy ncope Please call patient to schedule an appointment. Thank you. Referring Physician: Rebecca [facility], Encounter Date: 10/11/2024 Clinical Research Nurse Coordinator Referral for Erupt ion Please call patient to schedule an appointment. Thank you. Referring Physician: Rebecca Lacey [facility], Encounter Date: 11/11/2024 Results Created Date Observation Date Name Description Value Unit Range Abnormal Flag Note LastModifiedBy Organization Detail LastModifiedTime 12/31/1912/30/2022 urina lysis , dipst ick Leukocytes (reference range: negative montse/ l) Negati ve Not Available [facility] Lizella [address], [place], [address], 12/30/2022 09:08:42 12/31/19 23 12/30/2022 urina lysis , dipst ick Nitrite (reference rage: negative mg/dl) negati ve Not Available [facility] [address], [place], [address], 12/30/2022 09:08:42 12/31/19 12/30/2022 urina lysis , dipst ick Urobilinogen (reference range: 0.2-1 mg/dl) 0.2 Not Available [facility] [address], [place], [address], 12/30/2022 09:08:42 12/31/19 23 12/30/2022 urina lysis , dipst ick Protein (reference range: negative mg/dl) Negati ve Not Available [facility] [address] [place] [address] [address], [place], [address], 12/30/2022 09:08:42 12/31/19 23 12/30/2022 urina lysis , dipst ick pH (reference range: 5-7) 5.5 Not Available [facility] [address] [place] [address] [address] [facility], [place], [address], 12/30/2022 09:08:42 12/31/19 23 12/30/2022 urina lysis , dipst ick Blood (reference range: negative Kenan/ l) Negati ve Not Available [facility] [address], [place], [address], 12/30/2022 09:08:42 12/31/19 23 12/30/2022 urina lysis , dipst ick Specific Pedro (reference range: 1.005-1.030) 1.030 Not Available s _[facility] [address] [place] [address] [address], [place], [address], 12/30/2022 09:08:42 12/31/19 23 12/30/2022 urina lysis , dipst ick Ketone (reference range: negative mg/dl) Negati ve Not Available [facility] [address] [place] [address] [address] [facility], [place], [address], 12/30/2022 09:08:42 12/31/19 23 12/30/2022 urina lysis , dipst ick Bilirubin (reference range: negative mg/dl) Negati ve Not Available [facility] [address], [place], [address], 12/30/2022 09:08:42 12/31/19 23 12/30/2022 urina lysis , dipst ick Glucose (reference range: negative mg/dl) Negati ve Not Available [facility] [address] [facility] [address], [place], [address], 12/30/2022 09:08:42 12/31/19 23 12/30/2022 urina lysis , dipst ick Appearance Clear Not Available [facility] [address] [facility] [address], [place], [address], 12/30/2022 09:08:42 12/31/19 23 12/30/2022 urina lysis , dipst ick Color Yellow Not Available [facility] t Lizella [address] [facility] [address], [place], [address], 12/30/2022 09:08:42 03/21/20 23 03/21/2023 urina lysis , dipst ick Leukocytes (reference range: negative montse/ l) Negati ve Not Available [facility] [address] [facility] [address], [place], [address], 03/21/2023 09:07:35 03/21/20 23 03/21/2023 urina lysis , dipst ick Nitrite (reference rage: negative mg/dl) negati ve Not Available [facility] Lizella [address] [place], [place] [address]pramod [facility], [place], [address], 03/21/2023 09:07:35 03/21/20 23 03/21/2023 urina lysis , dipst ick Urobilinogen (reference range: 0.2-1 mg/dl) 0.2 Not Available [facility] [address], [place], [address], 03/21/2023 09:07:35 03/21/20 23 03/21/2023 urina lysis , dipst ick Protein (reference range: negative mg/dl) Negati ve Not Available [facility] [address], [place], [address], 03/21/2023 09:07:35 03/21/20 23 03/21/2023 urina lysis , dipst ick pH (reference range: 5-7) 5.5 Not Available [facility] [address], [place], [address], 03/21/2023 09:07:35 03/21/20 23 03/21/2023 urina lysis , dipst ick Blood (reference range: negative Kenan/ l) Negati ve Not Available [facility] [address] [facility] [address], [place], [address], 03/21/2023 09:07:35 03/21/20 23 03/21/2023 urina lysis , dipst ick Specific Pedro (reference range: 1.005-1.030) 1.030 Not Available s _[facility] [address] [facility] [address], [place], [address], 03/21/2023 09:07:35 03/21/20 23 03/21/2023 urina lysis , dipst ick Ketone (reference range: negative mg/dl) Negati ve Not Available [facility] [address] [place] [address] [address], [place], [address], 03/21/2023 09:07:35 03/21/20 23 03/21/2023 urina lysis , dipst ick Bilirubin (reference range: negative mg/dl) Negati ve Not Available [facility] [address] [facility] [address], [place], [address], 03/21/2023 09:07:35 03/21/20 23 03/21/2023 urina lysis , dipst ick Glucose (reference range: negative mg/dl) Negati ve Not Available [facility] [address] [facility], [place], [address], 03/21/2023 09:07:35 03/21/20 23 03/21/2023 urina lysis , dipst ick Appearance Clear Not Available [facility] [address] [facility] [address], [place], [address], 03/21/2023 09:07:35 03/21/2003/21/2023 urina lysis , dipst ick Color Yellow Not Available [facility] t Lizella [address] [facility] [address], [place], [address], 03/21/2023 09:07:35 05/05/20 23 05/05/2023 urina lysis , dipst ick Leukocytes (reference range: negative montse/ l) Negati ve Not Available [facility] [address], [place], [address], 05/01/2023 17:29:48 05/05/20 23 05/05/2023 urina lysis , dipst ick Nitrite (reference rage: negative mg/dl) negati ve Not Available s_[address], [place], [address], 05/01/2023 17:29:48 05/05/2005/05/2023 urina lysis , dipst ick Urobilinogen (reference range: 0.2-1 mg/dl) 0.2 Not Available [address], [place], [address], 05/01/2023 17:29:48 05/05/2005/05/2023 urina lysis , dipst ick Protein (reference range: negative mg/dl) Negati ve Not Available [address], [place], [address], 05/01/2023 17:29:48 05/05/2005/05/2023 urina lysis , dipst ick pH (reference range: 5-7) 6.5 Not Available [address], [place], [address], 05/01/2023 17:29:48 05/05/2005/05/2023 urina lysis , dipst ick Blood (reference range: negative Kenan/ l) Non-He molyze d: Trace Not Available [address], [place], [address], 05/01/2023 17:29:48 05/05/2005/05/2023 urina lysis , dipst ick Specific Pedro (reference range: 1.005-1.030) 1.010 Not Available [address], [place], [address], 05/01/2023 17:29:48 05/05/2005/05/2023 urina lysis , dipst ick Ketone (reference range: negative mg/dl) Negati ve Not Available [address], [place], [address], 05/01/2023 17:29:48 05/05/20 23 05/05/2023 urina lysis , dipst ick Bilirubin (reference range: negative mg/dl) Negati ve Not Available [address], [place], [address], 05/01/2023 17:29:48 05/05/2005/05/2023 urina lysis , dipst ick Glucose (reference range: negative mg/dl) Negati ve Not Available [address], [place], [address], 05/01/2023 17:29:48 05/05/2005/05/2023 urina lysis , dipst ick Appearance Slight ly Cloudy Not Available [address], [place], [address], 05/01/2023 17:29:48 05/05/2005/05/2023 urina lysis , dipst ick Color Yellow Not Available [address], [place], [address], 05/01/2023 17:29:48 05/05/20 23 05/05/2023 pregn farhad test, urine HCG negati ve Not Available [address], [place], [address], 05/01/2023 17:29:46 10/13/19 25 10/13/2024 TSH+F REE T4 TSH 1.600 uIU/m L 0.450- 4.500 normal Not Available [facility] ([facility]) [address] [facility], [place], [address], 10/13/2024 14:13:03 10/13/19 25 10/13/2024 TSH+F REE T4 T4,free(dire ct) 1.47 NG/dL 0.82-1 .77 normal Not Available [facility] ([facility]) [address] [place], [address], 10/13/2024 14:13:03 10/13/19 25 10/12/2024 CBC WITH DIFFE RENTI AL/PL ATELE T WBC 5.6 x10e3 /uL 3.4-10 .8 normal Not Available [facility] ([facility]) [address] [place], [address], 10/13/2024 14:13:05 10/13/19 25 10/12/2024 CBC WITH DIFFE RENTI AL/PL ATELE T RBC 4.55 x10e6 /uL 3.77-5 .28 normal Not Available [facility] ([facility]) [address] [place], [address], 10/13/2024 14:13:05 10/13/19 25 10/12/2024 CBC WITH DIFFE RENTI AL/PL ATELE T hemoglobin 13.6 g/dL 11.1-1 5.9 normal Not Available [facility] ([facility]) [address] [place], [address], 10/13/2024 14:13:05 10/13/19 25 10/12/2024 CBC WITH DIFFE RENTI AL/PL ATELE T hematocrit 41.4 % 34.0-4 6.6 normal Not Available [facility] ([facility]) [address] [place], [address], 10/13/2024 14:13:05 10/13/19 25 10/12/2024 CBC WITH DIFFE RENTI AL/PL ATELE T MCV 91 fL 79-97 normal Not Available [facility] ([facility]) [address] [place], [address], 10/13/2024 14:13:05 10/13/19 25 10/12/2024 CBC WITH DIFFE RENTI AL/PL ATELE T MCH 29.9 pg 26.6-3 3.0 normal Not Available [facility] ([facility]) [address] [place], [address], 10/13/2024 14:13:05 10/13/19 25 10/12/2024 CBC WITH DIFFE RENTI AL/PL ATELE T MCHC 32.9 g/dL 31.5-3 5.7 normal Not Available [facility] ([facility]) [address] [facility], [place], [address], 10/13/2024 14:13:05 10/13/19 25 10/12/2024 CBC WITH DIFFE RENTI AL/PL ATELE T RDW 12.5 % 11.7-1 5.4 Not Available [facility] ([facility]) [address] [facility], [place], [address], 10/13/2024 14:13:05 10/13/19 25 10/12/2024 CBC WITH DIFFE RENTI AL/PL ATELE T platelets 216 x10e3 /uL 150-45 0 normal Not Available [facility] ([facility]) [address] [place], [address], 10/13/2024 14:13:05 10/13/19 25 10/12/2024 CBC WITH DIFFE RENTI AL/PL ATELE T neutrophils 42 % not estab. normal Not Available [facility] ([facility]) [address] [facility], [place], [address], 10/13/2024 14:13:05 10/13/19 25 10/12/2024 CBC WITH DIFFE RENTI AL/PL ATELE T lymphs 49 % not estab. normal Not Available [facility] ([facility]) [address] [place], [address], 10/13/2024 14:13:05 10/13/19 25 10/12/2024 CBC WITH DIFFE RENTI AL/PL ATELE T monocytes 7 % not estab. normal Not Available [facility] ([facility]) [address] [facility], [place], [address], 10/13/2024 14:13:05 10/13/19 25 10/12/2024 CBC WITH DIFFE RENTI AL/PL ATELE T eos 1 % not estab. normal Not Available [facility] ([facility]) [address] [facility], [place], [address], 10/13/2024 14:13:05 10/13/19 25 10/12/2024 CBC WITH DIFFE RENTI AL/PL ATELE T basos 1 % not estab. normal Not Available [facility] ([facility]) [address] [facility], [place], [address], 10/13/2024 14:13:05 10/13/19 25 10/12/2024 CBC WITH DIFFE RENTI AL/PL ATELE T immature cells INK MAKER Not Available [facility] ([facility]) [address] [place], [address], 10/13/2024 14:13:05 10/13/19 25 10/12/2024 CBC WITH DIFFE RENTI AL/PL ATELE T neutrophils (absolute) 2.3 x10e3 /uL 1.4-7. 0 normal Not Available [facility] ([facility]) [address] [place], [address], 10/13/2024 14:13:05 10/13/19 25 10/12/2024 CBC WITH DIFFE RENTI AL/PL ATELE T lymphs (absolute) 2.7 x10e3 /uL 0.7-3. 1 normal Not Available [facility] ([facility]) [address] [place], [address], 10/13/2024 14:13:05 10/13/19 25 10/12/2024 CBC WITH DIFFE RENTI AL/PL ATELE T monocytes(ab solute) 0.4 x10e3 /uL 0.1-0. 9 normal Not Available [facility] ([facility]) [address] [facility], [place], [address], 10/13/2024 14:13:05 10/13/19 25 10/12/2024 CBC WITH DIFFE RENTI AL/PL ATELE T eos (absolute) 0.1 x10e3 /uL 0.0-0. 4 normal Not Available [facility] ([facility]) [address] [facility], [place], [address], 10/13/2024 14:13:05 10/13/19 25 10/12/2024 CBC WITH DIFFE RENTI AL/PL ATELE T baso (absolute) 0.0 x10e3 /uL 0.0-0. 2 normal Not Available [facility] ([facility]) [address] [facility], [place], [address], 10/13/2024 14:13:05 10/13/19 25 10/12/2024 CBC WITH DIFFE RENTI AL/PL ATELE T immature granulocytes 0 % not estab. Not Available [facility] ([facility]) [address] [facility], [place], [address], 10/13/2024 14:13:05 10/13/19 25 10/12/2024 CBC WITH DIFFE RENTI AL/PL ATELE T immature grans (abs) 0.0 x10e3 /uL 0.0-0. 1 Not Available [facility] ([facility]) [address] [facility], [place], [address], 10/13/2024 14:13:05 10/13/19 25 10/12/2024 CBC WITH DIFFE RENTI AL/PL ATELE T NRBC INK MAKER Not Available [facility] ([facility]) [address] [facility], [place], [address], 10/13/2024 14:13:05 10/13/19 25 10/12/2024 CBC WITH DIFFE RENTI AL/PL ATELE T hematology comments: INK MAKER Not Available [facility] ([facility]) [address] [facility] [place], [address], 10/13/2024 14:13:05 10/13/19 25 10/13/2024 COMP. METAB OLIC PANEL (14) glucose 81 mg/dL 70-99 normal Not Available [facility] ([facility]) [address] [facility] [place], [address], 10/13/2024 14:13:06 10/13/19 25 10/13/2024 COMP. METAB OLIC PANEL (14) BUN 14 mg/dL 6-20 normal Not Available [facility] ([facility]) [address] [facility] [place], [address], 10/13/2024 14:13:06 10/13/19 25 10/13/2024 COMP. METAB OLIC PANEL (14) creatinine 0.85 mg/dL 0.57-1 .00 normal Not Available [facility] ([facility]) [address] [facility] [place], [address], 10/13/2024 14:13:06 10/13/19 25 10/13/2024 COMP. METAB OLIC PANEL (14) eGFR 93 mL/mi n/1.7 3 >59 normal Not Available [facility] ([facility]) [address] [facility] [place], [address], 10/13/2024 14:13:06 10/13/19 25 10/13/2024 COMP. METAB OLIC PANEL (14) BUN/creatini ne ratio 16 9-23 normal Not Available [facility] ([facility]) [address] [facility] [place], [address], 10/13/2024 14:13:06 10/13/19 25 10/13/2024 COMP. METAB OLIC PANEL (14) sodium 137 mmol/ L 134-14 4 normal Not Available [facility] ([facility]) [address] [facility] [place], [address], 10/13/2024 14:13:06 10/13/19 25 10/13/2024 COMP. METAB OLIC PANEL (14) potassium 4.0 mmol/ L 3.5-5. 2 normal Not Available [facility] ([facility]) [address] [facility], [place], [address], 10/13/2024 14:13:06 10/13/19 25 10/13/2024 COMP. METAB OLIC PANEL (14) chloride 103 mmol/ L 96-106 normal Not Available [facility] ([facility]) [address] [facility], [place], [address], 10/13/2024 14:13:06 10/13/19 25 10/13/2024 COMP. METAB OLIC PANEL (14) carbon dioxide, total 22 mmol/ L 20-29 normal Not Available [facility] ([facility]) [address] [facility] [place], [address], 10/13/2024 14:13:06 10/13/19 25 10/13/2024 COMP. METAB OLIC PANEL (14) calcium 9.4 mg/dL 8.7-10 .2 normal Not Available [facility] ([facility]) [address] [place], [address], 10/13/2024 14:13:06 10/13/19 25 10/13/2024 COMP. METAB OLIC PANEL (14) protein, total 7.2 g/dL 6.0-8. 5 normal Not Available [facility] ([facility]) [address] [facility] [place], [address], 10/13/2024 14:13:06 10/13/19 25 10/13/2024 COMP. METAB OLIC PANEL (14) albumin 4.7 g/dL 3.9-4. 9 normal Not Available [facility] ([facility]) [address] [facility], [place], [address], 10/13/2024 14:13:06 10/13/19 25 10/13/2024 COMP. METAB OLIC PANEL (14) globulin, total 2.5 g/dL 1.5-4. 5 Not Available [facility] ([facility]) [address] [place], [address], 10/13/2024 14:13:06 10/13/19 25 10/13/2024 COMP. METAB OLIC PANEL (14) bilirubin, total 0.5 mg/dL 0.0-1. 2 normal Not Available [facility] ([facility]) [address] [place], [address], 10/13/2024 14:13:06 10/13/19 25 10/13/2024 COMP. METAB OLIC PANEL (14) alkaline phosphatase 58 IU/L 44-121 normal Not Available [facility] ([facility]) [address] [place], [address], 10/13/2024 14:13:06 10/13/19 25 10/13/2024 COMP. METAB OLIC PANEL (14) AST (SGOT) 15 IU/L 0-40 normal Not Available [facility] ([facility]) [address] [place], [address], 10/13/2024 14:13:06 10/13/19 25 10/13/2024 COMP. METAB OLIC PANEL (14) ALT (SGPT) 11 IU/L 0-32 normal Not Available [facility] ([facility]) [address] [place], [address], 10/13/2024 14:13:06 10/13/19 25 10/13/2024 LIPID PANEL cholesterol, total 175 mg/dL 100-19 9 normal Not Available [facility] ([facility]) [address] [place], [address], 10/13/2024 14:13:07 10/13/19 25 10/13/2024 LIPID PANEL triglyceride s 117 mg/dL 0-149 normal Not Available [facility] ([facility]) [address] [facility], [place], [address], 10/13/2024 14:13:07 10/13/19 25 10/13/2024 LIPID PANEL HDL cholesterol 50 mg/dL >39 normal Not Available [facility] ([facility]) [address] [place], [address], 10/13/2024 14:13:07 10/13/19 25 10/13/2024 LIPID PANEL VLDL cholesterol humberto 21 mg/dL 5-40 Not Available [facility] ([facility]) [address] [place], [address], 10/13/2024 14:13:07 10/13/19 25 10/13/2024 LIPID PANEL LDL chol calc ([facility]) 104 mg/dL 0-99 above high normal Not Available [facility] ([facility]) [address] [place], [address], 10/13/2024 14:13:07 10/13/19 25 10/13/2024 LIPID PANEL LDL calc comment: INK MAKER Not Available [facility] ([facility]) [address] [facility], [place], [address], 10/13/2024 14:13:07 10/13/19 25 10/13/2024 VITAM IN B12 AND FOLAT E vitamin B12 676 pg/mL 232-12 45 normal Not Available [facility] ([facility]) [address] [place], [address], 10/13/2024 14:13:08 10/13/19 25 10/13/2024 VITAM IN B12 AND FOLAT E folate (folic acid), serum 5.1 NG/mL >3.0 normal A serum folat e sophia ntrat ion of less than 3.1 ng/mL is consi dered to repre sent clini humberto defic iency . Not Available [facility] ([facility]) [address] [place], [address], 10/13/2024 14:13:08 10/13/19 25 10/13/2024 HEMOG LOBIN A1C hemoglobin A1C 5.2 % 4.8-5. 6 normal Predi abete s: 5.7 - 6.4 Diabe piter: >6.4 Glyce lucretia contr ol for adult s with diabe piter: <7.0 Not Available [facility] ([facility]) [address] [facility], [place], [address], 10/13/2024 14:13:10 10/13/19 25 10/13/2024 RHEUM ATOID FACTO R (RF) rheumatoid factor (rf) <10.0 IU/mL <14.0 Not Available [facility] ([facility]) [address] [facility], [place], [address], 10/13/2024 14:13:11 10/13/19 25 10/13/2024 VITAM IN [...] Endoc rine Socie ty went on to [facility] er defin e vitam in D insuf ficie ncy as a level betwe en 21 and 29 ng/mL (2). 1. IOM (Inst itute of Medic ine). 2009. Dieta ry refer ence intak es for calci um and D. Shahnaz walton [place]: The Natio nal [facility] Press . 2. Preston marks MF, Nidhi cox [place], Tavia off-F keila i MENA, et al. Evalu ation , treat ment, and preve ntion of vitam in D defic iency : an Endoc rine Socie ty clini humberto pract ice guide line. JCEM. 2010; 96(7) :1911 -30. Not Available [facility] ([facility]) [address] [facility], [place], [address], 10/13/2024 14:13:12 10/13/19 25 10/13/2024 VARIC LISSETH- [...] not been acqui red. Not Available [facility] ([facility]) [address] [facility], [place], [address], 10/13/2024 14:13:13 10/13/19 25 10/13/2024 FRANK W/REF MILES IF POSIT UDAY FRANK direct NEGATI VE negati ve Not Available [facility] ([facility]) [address] [facility], [place], [address], 10/13/2024 14:13:14 10/13/19 25 10/12/2024 SEDIM ENTAT ION RATE- WESTE RGREN sedimentatio n rate-westerg armando 4 mm/HR 0-32 normal Not Available [facility] ([facility]) [address] [facility], [place], [address], 10/13/2024 14:13:15 10/13/19 25 10/13/2024 CREAT INE KINAS E,TOT AL creatine kinase,total 62 U/L 32-182 normal Not Available [facility] ([facility]) [address] [facility], [place], [address], 10/13/2024 14:13:16 10/13/19 25 10/13/2024 MAGNE SIUM magnesium 2.2 mg/dL 1.6-2. 3 normal Not Available [facility] ([facility]) [address] [facility], [place], [address], 10/13/2024 14:13:17 10/13/1910/13/2024 THYRO ID PEROX IDASE (TPO) AB thyroid peroxidase (tpo) Ab 19 IU/mL 0-34 normal Not Available [facility] ([facility]) [address] [facility], [place], [address], 10/13/2024 14:13:19 10/13/19 25 10/13/2024 TRIIO DOTHY IMANI E (T3), FREE triiodothyro nine (T3), free 3.3 pg/mL 2.0-4. 4 normal Not Available [facility] ([facility]) [address] [facility], [place], [address], 10/13/2024 14:13:20 12/05/19 23 12/04/2022 MAMMO , diagn ostic , digit al, bilat eral No observ ation record ed. [email or web address] [facility] [address], [place], [address], 12/09/2022 11:11:54 05/01/2005/01/2023 XR, abdom en, 1 view [facility] [address] [facility] [place] [address] Patien t Name: JANNY ROLLE Access ion #: [id number] Sex: F : 1989 [address] D[address] [...] CT may be consid ered to magnus almaraz evalua te. Electr onical ly Signed by: Narendra Knight at 2022 18:12: 08 PM Page 1 [email or web address] [facility] (Imaging) [address] [place], [address], 05/09/2023 12:06:40 10/12/19 25 09/25/2024 imagi ng/di agnos tic resul t No observ ation record ed. [address], [place], [address], 10/11/2024 16:43:05 10/14/19 25 10/13/2024 XR, cervi humberto spine , 2 or 3 view No observ ation record ed. [email or web address] [address], [place], [address], 10/14/2024 10:30:03 10/15/19 25 10/14/2024 XR, thora cic spine , 2 view No observ ation record ed. [address], [place], [address], 10/14/2024 12:12:22 11/08/19 25 11/06/2024 US, echoc ardio gram No observ ation record ed. [email or web address] [facility] [address], [place], [address], 11/08/2024 13:55:01 11/10/19 25 11/06/2024 CT, coron oscar calci um score No observ ation record ed. [email or web address] [facility] [address], [place], [address], 11/09/2024 18:24:03 11/11/19 25 11/09/2024 US, jeremy north id arter y No observ ation record ed. [email or web address] [facility] [address], [place], [address], 11/10/2024 16:07:36 11/18/19 25 11/17/2024 MRI, cervi humberto spine , w/o contr ast No observ ation record ed. [email or web address] [facility] [address], [place], [address], 11/18/2024 11:20:27 Result Notes None recorded. Problems Name Problem SNOMED Code Status Onset Date Resolution Date Notes Provider Name and Address Organization Details Recorded Time Irritable bowel syndrome 72107229 Active Not Available [facility] 3 15:19:27 Acne 12563544 Active Not Available [facility] 3 15:19:27 Suprapubic pain 676873319 Active Not Available [facility] 3 15:19:27 Asthma 299013011 Active 2016 Not Available [facility] 3 15:19:27 Abdominal pain 84714871 Active Not Available [facility] 3 15:19:27 Vaginitis 78117875 Active Not Available [facility] 3 15:19:27 Menometrorrha david 848901317 Active Not Available [facility] 3 15:19:27 Restless legs 29053981 Active 2019 Not Available [facility] 3 15:19:27 Depressive disorder 76616254 Active Not Available [facility] 3 15:19:27 Sinusitis 04195123 Active Not Available [facility] 3 15:19:27 Bacterial vaginosis 102085589 Active Not Available [facility] 3 15:19:27 Anxiety 18612811 Active Not Available [facility] 3 15:19:27 Morning sickness 78220900 Active Not Available [facility] 3 15:19:28 Vulvitis 63447080 Active Not Available [facility] 3 15:19:28 Acute cystitis 85692928 Active Not Available [facility] 3 15:19:28 Tingling pain 871250674 Active 2019 Not Available [facility] 3 15:19:28 Loss of hair 413017622 Active 2022 GIO Burks [address], [place], [address] , [employer] [facility] 3 08:12:59 Paresthesia of upper limb 42036643 Active 2022 GIO Burks [address], [place], [address] , [employer] [facility] 3 08:18:51 Hearing loss 17108401 Active 2022 GIO Burks [address], [place], [address] , [employer] [facility] 3 08:22:07 Strain of neck muscle 179562938 Active 2022 GIO Burks [address], [place], [address] , [employer] 3 08:24:19 Increased frequency of urination 205085091 Active 2022 Allen Leach NP [address], [place], [address] , [facility] [employer] [facility] 3 09:23:26 Nocturia 880366765 Active 2022 Allen Leach NP [address], [place], [address] , [facility] [employer] [facility] 3 14:47:32 Urgent desire to urinate 21589876 Active 2022 Allen Leach NP [address], [place], [address] , [facility] [employer] [facility] 3 14:50:22 Stomach cramps 51955342 Active 2022 MERRILL Bryan [address], [place], [address] , [employer] 3 17:29:43 Syncope 759108025 Active 2024 KARENA Devine [address], [place], [address] , [employer] 5 16:17:54 Attention deficit hyperactivity disorder 603750855 Active 2024 KARENA Devine [address], [place], [address] , [employer] 5 16:34:10 Candidiasis of mouth 72423998 Active 2024 KARENA Devine [address], [place], [address] , [employer] 5 17:01:24 Stiff neck 020779035 Active 2024 KARENA Devine [address], [address], [place], [address] , [employer] 5 17:02:08 Neck pain 25858139 Active 2024 KARENA Devine [address], [place], [address] , [employer] 5 17:02:19 Involuntary movement 881400229 Active 2024 KARENA Devine [address], [place], [address] , [employer] 5 17:04:38 Herpes zoster 5474408 Active 2024 KARENA Devine [address], [place], [address] , [employer] 5 15:08:50 Low back pain 697604348 Active 2024 KARENA Devine [address], [address], [place], [address] , [facility] [employer] 5 08:31:04 Thoracic back pain 468024410 Active 2024 KARENA Devine [address], [address], [place], [address] , [facility] [employer] [facility] 5 08:31:15 Eruption 904154922 Active 2024 KARENA Devine [address], [place], [address] , [facility] [employer] 5 10:54:06 Problem Notes None recorded. Procedures Surgical History Date Name Laterality Status Provider Name and Address Organization Details Recorded Time Foot Surgery completed Not Available [facility] 09/25/2022 15:15:20 section completed Not Available [facility] 09/25/2022 15:15:20 Imaging Results None recorded. Procedure Notes None recorded. Medical Equipment None Reported. Allergies Allergen ID Allergen Name Allergen Category Reaction Reaction Severity Criticality Documentation Date Start Date Code Code System Note Provider Name and Address Organization Details Recorded Time 23120 morphine medicatio n Not available Not available Not available 09/25/2022 7052 RxNorm Not Available [facility] 3 15:22:20 86055 Effexor medicatio n other severe Not available 09/25/20222019 07854 2 RxNorm throa t closi ng, pupil s dilat ed, daly garcia, muscl e stiff ness Not Available [facility] 3 15:22:21 Medications Name Sig Start Date [...] Not Available Not Available Not Available Microgestin 20 (21) 1 mg-20 mcg tablet TAKE 1 [...] Updated DateTime 5 160.02 cm 23 kg/m2 89081.0 1 g 85 /min 98 [degF] 98 % 98 % 104 mm[Hg] 64 mm[Hg] Elsie Jessica MA [employer] 5 16:04:51 Date Recorded Body height Body mass index (BMI) Body weight Body temperature Heart rate Oxygen saturation Oxygen saturation in Arterial blood by Pulse oximetry Systolic blood pressure Diastolic blood pressure Provider Name and Address Organization Details Last Updated DateTime 5 160.02 cm 22.3 kg/m2 41030.6 4 g 98.1 [degF] 80 /min 97 % 97 % 104 mm[Hg] 60 mm[Hg] Elsie Jessica MA [employer] 5 10:43:49 Date Recorded Body height Heart rate Body temperature Body mass index (BMI) Body weight Oxygen saturation Oxygen saturation in Arterial blood by Pulse oximetry Systolic blood pressure Diastolic blood pressure Provider Name and Address Organization Details Last Updated DateTime 3 160.02 cm 95 /min 98.4 [degF] 24.1 kg/m2 33823.2 8 g 98 % 98 % 111 mm[Hg] 78 mm[Hg] Giovanna Crowe MA [employer] 3 14:31:18 Date Recorded Body height Body mass index (BMI) Body weight Oxygen saturation Oxygen saturation in Arterial blood by Pulse oximetry Heart rate Body temperature Provider Name and Address Organization Details Last Updated DateTime 3 160.02 cm 24.8 kg/m2 03981.9 3 g 99 % 99 % 110 /min 98.4 [degF] JUAN Kraus [place] - [employer] 3 10:05:01 Date Recorded Body height Body mass index (BMI) Body weight Body temperature Heart rate Oxygen saturation Oxygen saturation in Arterial blood by Pulse oximetry Systolic blood pressure Diastolic blood pressure Provider Name and Address Organization Details Last Updated DateTime 3 160.02 cm 25.3 kg/m2 87994.7 1 g 96 [degF] 78 /min 98 % 98 % 102 mm[Hg] 60 mm[Hg] Elen Chávez RN [place] - [facility] [employer] 3 17:21:49 Social History Question Answer Notes LastModified by Organizat ion Details LastModified Time Tobacco Smoking Status Never Smoker Not Available [facility] 09/25/2022 15:15:17 If You Are , What Was Your Level Of Alcohol Consumption Prior To ? None [id number] Information not available 09/25/2022 What Is Your Level Of Caffeine Consumption? Occasional MIGRATION.09655 27519 Information not available 09/25/2022 In The 14 Days Before Symptom Onset, Have You Had Close Contact With A Laboratory-confir med COVID-19 While That Case Was Ill? No MIGRATION.10853 36475 Information not available 09/25/2022 In The 14 Days Before Symptom Onset, Have You Had Close Contact With A Person Who Is Under Investigation For COVID-19 While That Person Was Ill? No MIGRATION.17582 01970 Information not available 09/25/2022 What Type Of Diet Are You Following? REGULAR MIGRATION.89532 54681 Information not available 09/25/2022 Have There Been [...] available 10/11/2024 Do You Participate In Social ZANY OX? Yes Information not available 10/11/2024 Do You Use Sunscreen Routinely? No Information not available 11/11/2024 Have You Recently Traveled Abroad? No Information not available 10/11/2024 Are You Currently In School? No Information not available 10/11/2024 Do You Have Any Dietary Restrictions? No MIGRATION.20249 25160 Information not available 09/25/2022 Sex: Unknown Functional Status Question Answer Note LastModified by Organizat ion Details LastModified Time Do you use any illicit or recreational drugs? No MIGRATION.[id number] 26 Information not available 09/25/2022 Do you or have you ever used any other forms of tobacco or nicotine? No Information not available 11/11/2024 What is your level of alcohol consumption? None MIGRATION.97164360 26 Information not available 09/25/2022 Are you currently employed? Yes Information not available 10/11/2024 What is your exercise level? Moderate MIGRATION.05136614 26 Information not available 09/25/2022 Mental Status Question Answer Note LastModified by Organization D etails LastModified Time Do you feel stressed (tense, restless, nervous, or anxious, or unable to sleep at night)? [id number] Information not available 10/11/2024 Family History Relationship Description Onset Age of this Age Resolved Age Notes LastModified by Organization Details LastModified Time Father Heart disease MIGRATION.761 [id number] Not available 09/25/2022 15:15:23 Father Family history of malignant neoplasm MIGRATION.372 [id number] Not available 09/25/2022 15:15:23 Mother Diabetes mellitus MIGRATION.974 [id number] Not available 09/25/2022 15:15:23 Medical History Condition Response CYSTITIS N BLINDNESS N RHEUMATIC FEVER N KIDNEY STONES N BLADDER PROBLEMS N Enlarged Prostate N SLEEP APNEA N MRSA N INFECTIOUS DISEASE N LUNG DISEASE/DISORDER N HEART ARRHYTHMIA N PROSTATE N INSOMNIA N HISTORY OF DRUG ABUSE N RADIATION / CHEMOTHERAPY N COPD N HIGH CHOLESTEROL / HYPERLIPIDEMIA N HYPERTHYROIDISM N UTI N BLOOD DISEASES N EDEMA N HYPOTHYROIDISM N SHINGLES N DEPRESSION (INCLUDING POST ) Y BOWEL PROBLEMS N BACK / NECK PROBLEMS N HAVE YOU BEEN HOSPITALIZED OR SEEN IN [facility] ER IN THE PAST YEAR ? N STROKE/TIA N THYROID DISEASE N BENIGN PROSTATIC HYPERPLASIA N DIALYSIS N OBESITY N GERD/NAUSEA N ANEURYSM N OSTEOPOROSIS N URINARY/BLADDER/KIDNEY PROBLEMS N Increased Urination N CORONARY ARTERY DISEASE (CAD) N ARTHRITIS N USE OF BLOOD THINNERS N NO SIGNIFICANT PAST MEDICAL HISTORY N DIABETES, TYPE N EMPHYSEMA N PARKINSON N GASTROINTESTINAL DISORDER N GASTROINTESTINAL BLEEDING N BLOOD CLOTS N Difficulty Urinating N HEPATITIS / LIVER DISEASE N ASTHMA Y CATARACTS N GOUT N SLEEP DISORDER N ALZHEIMER'S DISEASE N HERPES N ERECTILE DYSFUNCTION N SEIZURES/EPILEPSY N HEADACHES/MIGRAINES N GI PROBLEMS N PACEMAKER N Low Testosterone N HEART MURMUR N DIZZINESS N KIDNEY DISEASE N HEART DISEASE/HEART PROBLEMS N AIDS/HIV N MULTIPLE SCLEROSIS N LIVER DISEASE N [...] SNOMED-CT Code Diagnosis ICD10 Code Diagnosis Note [id number] GIO Burks [facility] Primary Care [address] [place] [address] 06/15/2021 00:00:00 06/15/2021 18:27:30 [id number] GIO Burks [facility] Primary Care [address] [place] [address] 04/09/2022 00:00:00 04/09/2022 13:00:41 [id number] GIO Burks [facility] [place] [facility] [facility] [address] [facility] [address] [place] [address] 04/26/2022 00:00:00 04/26/2022 08:44:12 [id number] [facility] [address] [address] 05/13/2022 00:00:00 05/13/2022 13:21:06 [id number] ALONDRA Ramachandran [address] [address] 06/24/2022 00:00:00 06/24/2022 14:32:13 [id number] Allen Leach NP [facility] [address] [address] 09/23/2022 00:00:00 09/23/2022 14:42:42 [id number] GIO Burks [facility] [place] [address] [place] [address] 10/14/2022 07:59:26 10/14/2022 08:31:32 Loss of hair 859270865 L65.9 Has noticed hair loss for last few years, mainly around crown of head but noticing it more in the front.We have gotten labs and all have been within normal limits.Michel wolfe send to dermatolog y to evaluate further. Paresthesi a of upper limb 09955218 R20.2 Right side. Possible ulnar tunnel vs. carpal tunnel based on symptoms/n erve impairment .Advised she follow-up with neurologis t to see if they do NCS.Will send referral as a back-up to ortho if needed to evaluate. Hearing loss 67741846 H9 1.93 Will send for audiology testing.Ea rs clear on exam, no cerumen impaction. Strain of neck muscle 36 4799701 S16.1XXA Advised to work on stretching /exercises at home. [id number] Allen Leach NP [facility] [address] [address] 12/30/2022 14:03:08 12/30/2022 14:46:21 Increased frequency of urination 613810011 R35.0 UA is negative for infection. PVR [...] bladder irritants. Follow-up in 4 weeks. Nocturia 082943154 R35.1 Limit fluids 2 hours prior to bedtime Urgent dayday brielle to urinate 79561090 R39.15 [id number] Juan Harding MD [facility] [address] [address] 03/21/2023 09:49:13 03/21/2023 10:20:13 Increased frequency of urination 237785659 R35.0 UA is negative for infection. PVR [...] Patient elects to follow-up with me at [facility] in 6 months. Nocturia 327480657 R35.1 Limit fluids 2 hours prior to bedtime Urgent dayday brielle to urinate 21354852 R39.[id number] [facility] Primary Care [facility] [address] [facility] [address] [place] [address] 05/01/2023 17:13:36 05/01/2023 17:42:12 Stomach cramps 62720138 R10.9 New problemAdv ised to Go to ED for worsening abdominal pain, N/V/D or fever. Anti-reflu x measures reviewed: avoid spicy foods, recumbency after eating. Small meals recommende d. Take medication on empty stomach with full glass water.Preg madelin test neg today, urine dip unremarkab leStart famotidine 20mg dailyWill send for KUB [id number] KARENA Devine [facility] Primary Care [facility] [address] [facility] [address] [place] [address] 10/11/2024 15:49:26 10/11/2024 16:43:40 Adult health examination 827870659 Z00.00 Discussed medication compliance and routine follow up.Discuss ed healthy diet and routine exercise.Zahraa barbosawed vaccine records and made recommenda tions as needed.Enc ouraged annual eye and dental exams, as well as twice yearly dental cleanings. Will check screening labs as listed below. Syncope 085462313 R55 WIll refer to cardiology as listed below. Attention deficit hyperactivity disorder 337131661 F90.9 Will start treatment as listed below, patient to follow up in one month, sooner if needed.Nancy ient verbalized understand ing of CSA and is agreeable to routine office visits and random UDS. Candidiasis of mouth 797 30637 B37.0 Will treat as listed below. Neck pain 13247585 M54.2 Will attempt imaging as listed below due to numbness and tingling of bilateral upper and lower extremitie s. Involuntary movement 267 962666 R25.9 Continue to follow neurology as directed. History of herpes zoster 0665937899 88615 Z86.19 Will check labs as listed below due to rash being potential shingles Family his tory of Autoimmune disease 587523850 Z83.2 Will check labs as listed below. Family his tory of Thyroid disorder 998028258 Z83.49 Will check labs as listed below. Family his tory of Cardiovascular disease 028188961 Z82.49 Will check labs as listed below. [id number] [facility] [address] [facility] [address] [place] [address] 11/11/2024 10:25:00 11/11/2024 11:04:56 Eruption 812487934 R21 Attention deficit hyperactivity disorder 200976018 F90.[address] refill: 10/11/24UDS UTDlast appt: 11/11/24ne xt appt: 3 months, sooner if needed Syncope 966664007 R55 currently wearing 30 day heart monitor.fo llow [facility]. Health Concerns Section Related Observation LastModified by Organization Detai ls LastModified Time None Recorded Concern Status LastModified by Organization Details LastModified Time None Recorded Advance Directives Directive None Recorded Payers Encounter Date Sequence Insurance Name Policy Number Policy Eduardo Covered Member ID Eduardo Member ID Guarantor Name 12/30/2022 1 [place] [id number] Janny Alberto Aquilino [id number] Janny Alberto Aquilino 12/30/2022 2 [facility] (MEDICAID O) [id number] Janny Alberto Berwind [id number] Janny Alberto Aquilino 03/21/2023 1 [place] [id number] Janny Alberto Aquilino [id number] Janny Alberto Berwind 03/21/2023 2 [facility] (MEDICAID O) [id number] Janny Alberto Aquilino [id number] Janny Alberto Berwind 05/01/2023 1 [place] [id number] Janny Alberto Aquilino [id number] Janny Alberto Berwind 05/01/2023 2 [facility] (MEDICAID O) [id number] 0003 Janny Alberto Berwind [id number] Janny Alberto Aquilino 10/11/2024 1 [facility] [id number] Janny Alberto Berwind [id number] Janny Alberto Aquilino 10/11/2024 2 [place] [facility] Janny Dominguez Berwind [id number] Janny Alberto Berwind 11/11/2024 1 [facility] [id number] Janny Alberto Aquilino [id number] Janny Alberto Berwind 11/11/2024 2 [place] [employer] [place] Janny Rolle [id number] Janny Rolle Notes Date Note Type Note Provider [...] to stop due to side effects--rx'd by SUPERVISOR MODEL MAKING.-PREVIOUSLY TRIALED MEDS: Denies-DIABETES: Denies-NEUROLOGIC ISSUES: Chronic migraines-GI ISSUES: Denies-PRIOR /SUPERVISOR MODEL MAKING OPERATIONS:-BLOOD THINNERS: Fish oilUA- negative for blood [...] and waking up 3-4x a night. Her Educational Interpreter recommended that she discuss Gemtesa today. UA- negative for blood or infection Allen Leach NP [address], [facility] [address], [place], [address], [place] [facility] [place] [employer] [facility] 12/30/2022 14:51:02 03/21/2023 text/html 05/13/2022clark astudillo presents [...] to stop due to side effects--rx'd by SUPERVISOR MODEL MAKING.-PREVIOUSLY TRIALED MEDS: Denies-DIABETES: Denies-NEUROLOGIC ISSUES: Chronic migraines-GI ISSUES: Denies-PRIOR /SUPERVISOR MODEL MAKING OPERATIONS:-BLOOD THINNERS: Fish oilUA- negative for blood [...] and waking up 3-4x a night. Her Educational Interpreter recommended that she discuss Gemtesa today. UA- negative for blood or infection 03/21/2023atient returns to the office for follow-up. She [...] blood or infection Allen Leach NP [address] [employer], [address], [place], [address], [employer] 03/21/2023 10:24:22 05/01/2023 text/html 1. Pt in [...] the past 3-4 weeks. MERRILL Bryan [address], [address], [place], [address], [employer] 05/01/2023 20:20:31 10/11/2024 text/html Patient is a 34 year old female that presents to the office for annual wellness. Patient reports having a recent infection that was treated by her balance and hairspring assembler. Patient was on Doxycycline followed by Moxifloxacin. [...] past, would like to follow up with automotive product specialist. Patient reports a rash to the right [...] Patient is also concerned with constantly being sick. Patient requesting to have autoimmune labs completed [...] ([facility]WE- UTD (November 2023)- sees gynecologyMammogra m-age [id number]-Ehept-Cfxs- KARENA Devine [address] [facility], [facility] [address], [place], [address], [facility] [employer] 10/12/2024 22:48:14 11/11/2024 text/html Patient is a [...] MRI on Friday. Patient followed up with automotive product specialist, all tests so far have been normal. Currently wearing 30 day heart monitor. MERRILL Devine-Hayley [address] [facility], [address] [address], [place], [address], [place] [facility] [place] [employer] [facility] 11/11/2024 12:06:48 OBGyn Episode No OBEpisode recorded.
== END 2025-01-04 11:07 | disposition home or self-care (01) ==
PROVIDERS: PCP Nurse Practitioner Family; Visit Provider Nurse Practitioner
DX: R10.2 Pelvic and perineal pain (principal); D25.9 Leiomyoma of uterus, unspecified
CPT/HCPCS: 76830; 76856